=== PATIENT | female | born 1960 | race Caucasian/White ===

== ENCOUNTER 2017-04-21 23:01 | Emergency (ER) | payer MEDICAID, OTHER ==
[~2017-04-21] VITALS: Ht 170.2 cm; Wt 95.0 kg
[~2017-04-21 23:01] MED LIST: AMIT25 PO; ASPI81TA82 PO; CYCL-36 PO; DIFL500T PO; GABA300C3 PO; HYDR-3533 PO; LOPR50TA12 PO; NITR0.4S SL; PERC5TAB12 PO; PROC1TAB8 PO; SIMV40 PO; SYNT125T PO; TAMS0.4C67 PO
[2017-04-21 23:02] VITALS: BP 174/110; PULSE 84; RESP 16; TEMP 98.5; O2SAT 97
[2017-04-22] MEDS ORDERED: METF500T PO (00:06)
[2017-04-22] MEDS ORDERED: CYMB60CA PO (00:06)
[2017-04-22 00:36] LABS: AUTOMATED NEUTROPHIL # 4.1 TH/MM3 (1.8-7.7); BASOPHIL % 0.6 % (0.0-2.0); EOSINOPHIL # 0.1 TH/MM3 (0-0.4); EOSINOPHIL % 1.2 % (0.0-4.0); HEMATOCRIT 45.4 % (35.0-46.0); HEMO FLAGS DIFF FINAL; LYMPH % 36.7 % (9.0-44.0); LYMPHOCYTE # 2.8 TH/MM3 (1.0-4.8); MEAN CELL VOLUME 88.4 FL (80.0-100.0); MEAN CORPUSCULAR HEMOGLOBIN 30.9 PG (27.0-34.0); MONO % 8.3 % (0.0-8.0); NEUT % 53.2 % (16.0-70.0); PLATELET COUNT 169 TH/MM3 (150-450); RED BLOOD COUNT 5.13 MIL/MM3 (4.00-5.30); RED CELL DISTRIBUTION WIDTH 14.2 % (11.6-17.2); WHITE BLOOD COUNT 7.7 TH/MM3 (4.0-11.0)
[2017-04-22] MEDS ORDERED: SODIUM CHLOR 0.9% 1000 ML INJ 1,000 ML IV SCH (00:36)
--- NOTE | 2017-04-22 00:39 | RADRPT ---
EXAM DATE/TIME: 04/22/2017 00:13 [facility] COMPARISON: No previous studies available for comparison. INDICATIONS : Cold and flu symptoms x 3 days MEDICAL HISTORY : Hypothyroidism. SURGICAL HISTORY : ENCOUNTER: Initial ACUITY: 3 days PAIN SCORE: 7/10 LOCATION: Bilateral chest FINDINGS: PA and lateral views of the chest demonstrate the lungs to be symmetrically aerated without evidence of mass, infiltrate or effusion. The cardiomediastinal contours are unremarkable. Osseous structure s are intact. CONCLUSION: No acute cardiopulmonary disease. Rio Padilla MD on April 22, 2017 at 0:37 Board Certified Radiologist. This report was verified electronically.
[2017-04-22] MEDS ORDERED: methylPREDNISolone SOD SUCC 125 MG/2 ML VIAL IV PUSH ONE (00:45)
[2017-04-22] MEDS ORDERED: KETOROLAC TROMETHAMINE 30 MG/ML (IVP) VIAL IV PUSH ONE (00:45)
[2017-04-22] MEDS ORDERED: RESP: ALBUTEROL 2.5 MG/IPRATROPIUM 0.5 MG NEB (SCH) INH ONE (00:45)
--- NOTE | 2017-04-22 00:46 | PD ---
HPI Chief Complaint: Cold / Flu Symptoms Time Seen by Provider: 00:23 Travel History International Travel<30 days: No Contact w/Intl Traveler<30days: No Traveled to known affect area: No History of Present Illness HPI Patient is a 57-year-old female who presents to emergency room with complaints of increased sinus pressure with productive cough, sore throat and myalgias. Patient reports that symptoms began 3 days ago, she reports that symptoms and the persistent. Patient reports that she has been around people with diagnosis influenza, she did have her influenza vaccine this year. Patient reports no chest pain/sob. Reports that she is a smoker. Patient also reports that she has also had laryngitis for the past 3 days. PFSH Past Medical History Arthritis: Yes (RA) Anxiety: Yes Depression: Yes Chest Pain: Yes Congestive Heart Failure: Yes Diabetes: Yes (BORDERLINE) Patient Takes Glucophage: Yes Diminished Hearing: No Gastrointestinal Disorders: Yes (COLITIS) Headaches: Yes Hypertension: Yes Kidney Stones: Yes Myocardial Infarction: Yes Pneumonia: Yes Seizures: Yes Thyroid Disease: Yes ?: Not Menopausal: Yes : 2 Para: 2 Past Surgical History Section: Yes (X 1) Cholecystectomy: Yes Genitourinary Surgery: Yes (BLADDER LIFTED) Hysterectomy: Yes Neurologic Surgery: Yes (MULTIPLE TUMORS IN FRONT LOBE REMOVED- 5 YEARS AGO) Other Surgery: Yes (TARSAL TUNNEL SYNDROME) Social History Alcohol Use: No Tobacco Use: Yes (1 PPD) Substance Use: Yes (MARIJUANA) Allergies-Medications (Allergen,Severity, Reaction): Coded Allergies: penicillin G (Unverified Allergy, Intermediate, Rash, 01/17/17) Reported Meds & Prescriptions Reported Meds & Active Scripts Active Tessalon Perles (Benzonatate) 100 Mg Cap 100 Mg PO TID PRN Azithromycin 500 Mg Tab 500 Mg PO DAILY Proair Hfa 8.5 GM Inh (Albuterol Sulfate) 90 Mcg/Act Aer 2 Puff INH Q4-6H PRN 108 mcg/actuation Prednisone 20 Mg Tab 20 Mg PO BID [address] (Duloxetine HCl) 60 Mg Capdr 60 Mg PO BID Metformin (Metformin HCl) 500 Mg Tab 500 Mg PO BIDPC Review of Systems General / Constitutional: Positive: Chills, No: Fever Eyes: No: Visual changes HENT: Positive: Sore Throat, Rhinitis, Rhinorrhea, Earache, No: Headaches, Neck Pain Cardiovascular: No: Chest Pain or Discomfort Respiratory: Positive: Cough, Wheezing, No: Shortness of Breath Gastrointestinal: No: Abdominal Pain Genitourinary: No: Dysuria Musculoskeletal: Positive: Myalgias, No: Pain Skin: No Rash Neurologic: No: Weakness Psychiatric: No: Depression Endocrine: No: Polydipsia Hematologic/Lymphatic: No: Easy Bruising Physical Exam Narrative GENERAL: Mild distress SKIN: Focused skin assessment warm/dry. HEAD: Atraumatic. Normocephalic. Increased frontal sinus pressure EYES: Pupils equal and round. No scleral icterus. No injection or drainage. ENT: No nasal bleeding or discharge. Mucous membranes pink and moist. NECK: Trachea midline. No JVD. CARDIOVASCULAR: Regular rate and rhythm. No murmur appreciated. RESPIRATORY: No accessory muscle use. Clear to auscultation. Breath sounds equal bilaterally. GASTROINTESTINAL: Abdomen soft, non-tender, nondistended. Hepatic and splenic margins not palpable. MUSCULOSKELETAL: No obvious deformities. No clubbing. No cyanosis. No edema. NEUROLOGICAL: Awake and alert. No obvious cranial nerve deficits. Motor grossly within normal limits. Normal speech. PSYCHIATRIC: Appropriate mood and affect; insight and judgment normal. Data Data Last Documented VS Vital Signs Date Time Temp Pulse Resp B/P (MAP) Pulse Ox O2 Delivery O2 Flow Rate FiO2 04/21/17 23:02 98.5 84 16 174/110 (131) 97 Room Air Orders Orders Complete Blood Count With Diff (04/21/17 23:59) Basic Metabolic Panel (Bmp) (04/21/17 23:59) Influenzae A/B Antigen (04/21/17 23:59) Chest, Pa & Lat (04/21/17 23:59) Iv Access Insert/Monitor (04/21/17 23:59) Sodium Chlor 0.9% 1000 Ml Inj (Ns 1000 M (04/22/17 00:36) Ketorolac Inj (Toradol Inj) (04/22/17 00:45) Methylprednisolone So Succ Inj (Solumedr (04/22/17 00:45) Albuterol-Ipratropium Neb (Duoneb Neb) (04/22/17 00:45) Azithromycin (Zithromax) (04/22/17 01:30) Labs Laboratory Tests Test 04/22/17 00:25 White Blood Count 7.7 TH/MM3 Red Blood Count 5.13 MIL/MM3 Hemoglobin 15.9 GM/DL Hematocrit 45.4 % Mean Corpuscular Volume 88.4 FL Mean Corpuscular Hemoglobin 30.9 PG Mean Corpuscular Hemoglobin Concent 35.0 % Red Cell Distribution Width 14.2 % Platelet Count 169 TH/MM3 Mean Platelet Volume 10.4 FL Neutrophils (%) (Auto) 53.2 % Lymphocytes (%) (Auto) 36.7 % Monocytes (%) (Auto) 8.3 % Eosinophils (%) (Auto) 1.2 % Basophils (%) (Auto) 0.6 % Neutrophils # (Auto) 4.1 TH/MM3 Lymphocytes # (Auto) 2.8 TH/MM3 Monocytes # (Auto) 0.6 TH/MM3 Eosinophils # (Auto) 0.1 TH/MM3 Basophils # (Auto) 0.0 TH/MM3 CBC Comment DIFF FINAL Differential Comment Blood Urea Nitrogen 21 MG/DL Creatinine 0.98 MG/DL Random Glucose 120 MG/DL Calcium Level 9.2 MG/DL Sodium Level 140 MEQ/L Potassium Level 3.9 MEQ/L Chloride Level 106 MEQ/L Carbon Dioxide Level 27.3 MEQ/L Anion Gap 7 MEQ/L Estimat Glomerular Filtration Rate 58 ML/MIN MDM Medical Decision Making Medical Screen Exam Complete: Yes Emergency Medical Condition: Yes Medical Record Reviewed: Yes Interpretation(s) Vital Signs Date Time Temp Pulse Resp B/P (MAP) Pulse Ox O2 Delivery O2 Flow Rate FiO2 04/21/17 23:02 98.5 84 16 174/110 (131) 97 Room Air CBC & BMP Diagram 04/22/17 00:25 Calcium Level 9.2 Last Impressions Chest X-Ray 04/21/17 [id number] Signed Impressions: Service Date/Time: Saturday, April 22, 2017 00:13 - CONCLUSION: No acute cardiopulmonary disease. Rio Padilla MD Microbiology Date/Time Source Procedure Growth Status 04/22/17 00:25 Nasal Aspirate Influenza Types A,B Antigen (LISA) - Final NEGATIVE FOR FLU A AND B ANTIGEN.... Complete Differential Diagnosis Sinusitis, pneumonia, acute bronchitis, viral syndrome, pharyngitis Narrative Course During the course of the patients emergency department visit, the patients history, examination, and differential diagnosis were reviewed with the patient. The patient was placed on a ross carrier driver with oximetry and frequent blood pressure monitoring. The patient had an IV access obtained and blood work sent for analysis. The patient was initially provided IV steroids, IV Toradol, IV fluids and nebulizer treatment. The patients laboratory studies were reviewed and remarkable for CBC & BMP Diagram 04/22/17 00:25 Calcium Level 9.2 Microbiology Date/Time Source Procedure Growth Status 04/22/17 00:25 Nasal Aspirate Influenza Types A,B Antigen (LISA) - Final NEGATIVE FOR FLU A AND B ANTIGEN.... Complete Radiology studies were reviewed and remarkable for Last Impressions Chest X-Ray 04/21/17 [id number] Signed Impressions: Service Date/Time: Monday, April 22, 2017 00:13 - CONCLUSION: No acute cardiopulmonary disease. Rio Padilla MD Patient with most likely acute bronchitis. Discussed need for her to stop smoking cigarettes, plan to treat with steroids, antibiotics, will have her follow-up with her primary care doctor and return to emergency room as needed. Diagnosis Primary Impression: Bronchitis Patient Instructions: General Instructions Additional Instructions: Please provide patient with a copy of their lab work and studies at discharge* * Please follow up with your primary care doctor in 2-3 days Return to the ER if symptoms worsen or progress Return to the ER as needed Med/Other Pt SpecificInfo: Prescription(s) given Scripts Promethazine-Codeine Liq (Promethazine-Codeine Liq) 6.25-10 Mg/5 Ml Syrp 5 ML PO Q6H Y for COUGH AND/OR COLD SYMPTOMS for 7 Days, #140 ML 0 Refills Prov: Mila Grullon DO 04/22/17 Benzonatate (Tessalon Perles) 100 Mg Cap 100 MG PO TID Y for COUGH, #30 CAP 0 Refills Prov: Mila Grullon DO 04/22/17 Azithromycin (Azithromycin) 500 Mg Tab 500 MG PO DAILY for Infection, #5 TAB 0 Refills Prov: Mila Grullon DO 04/22/17 Albuterol 8.5 GM Inh (Proair Hfa 8.5 GM Inh) 90 Mcg/Act Aer 2 PUFF INH Q4-6H Y for SHORTNESS OF BREATH, #1 INHALER 0 Refills 108 mcg/actuation Prov: Mila Grullon DO 04/22/17 Prednisone (Prednisone) 20 Mg Tab 20 MG PO BID for 5 Days, #10 TAB 0 Refills Prov: Mila Grullon DO 04/22/17 Disposition: 01 DISCHARGE HOME Condition: Stable Mila Grullon DO Apr 22, 2017 00:46
[2017-04-22 01:06] LABS: BICARBONATE 27.3 MEQ/L (21.0-32.0)
[2017-04-22 01:08] LABS: POTASSIUM 3.9 MEQ/L (3.5-5.1)
[2017-04-22] MEDS ORDERED: ALBUAER3 INH (01:24)
[2017-04-22] MEDS ORDERED: BENZ100 PO (01:24)
[2017-04-22] MEDS ORDERED: AZIT500T2 PO (01:24)
[2017-04-22] MEDS ORDERED: PRED20 PO (01:24)
[2017-04-22] MEDS ORDERED: PROM6.256 PO (01:28)
[2017-04-22] MEDS ORDERED: AZITHROMYCIN 250 MG TAB PO ONE (01:30)
== END 2017-04-22 01:49 | disposition home or self-care (01) ==
LOC: NEPD 23:01
DX: J40 Bronchitis, not specified as acute or chronic (principal); J11.1 Influenza due to unidentified influenza virus with other respiratory manifestations; I11.0 Hypertensive heart disease with heart failure; E11.9 Type 2 diabetes mellitus without complications; I25.2 Old myocardial infarction
CPT/HCPCS: 71020; 80048; 85025; 87804; 94664; 96361; 96374; 96375; 99284; J1885; J2930; J7030

== ENCOUNTER 2017-05-27 22:16 | Emergency (ER) | payer MEDICAID ==
[~2017-05-27] VITALS: Ht 170.2 cm; Wt 95.5 kg
[~2017-05-27 22:16] MED LIST changes: +ALBUAER3 INH; -AMIT25 PO; -ASPI81TA82 PO; +AZIT500T2 PO; +BENZ100 PO; -CYCL-36 PO; +CYMB60CA PO; -DIFL500T PO; -GABA300C3 PO; -HYDR-3533 PO; -LOPR50TA12 PO; +METF500T PO; -NITR0.4S SL; -PERC5TAB12 PO; +PRED20 PO; -PROC1TAB8 PO; +PROM6.256 PO; -SIMV40 PO; -SYNT125T PO; -TAMS0.4C67 PO
[2017-05-27 22:19] VITALS: BP 224/102; PULSE 97; RESP 16; TEMP 98.2; O2SAT 96
[2017-05-27] MEDS ORDERED: DEXAMETHASONE SOD PHOS 4 MG/ML VIAL IM ONE (23:15)
[2017-05-27] MEDS ORDERED: LEVO.125 PO (23:34)
--- NOTE | 2017-05-27 23:34 | PD ---
HPI Chief Complaint: ENT Complaint Time Seen by Provider: 23:09 Travel History International Travel<30 days: No Contact w/Intl Traveler<30days: No Traveled to known affect area: No History of Present Illness HPI 57 year-old woman presents emergent heart complaining of painful swallowing, soreness in her throat, neck fullness, fevers yesterday, and hoarse voice. She states she feels like she has a goiter. She's been out of her thyroid medicines for a month. She states she had trouble swallowing water and aggressive libertarian tonight so she came in. No other complaints. Symptoms been constant since onset tonight, nonradiating, no aggravating or alleviating factors. History Past Medical History Narrative Medical Fibromyalgia Arthritis Hypothyroidism Tetanus Vaccination: < 5 Years Menopausal: Yes : 2 Para: 2 Social History Alcohol Use: No Tobacco Use: No Allergies-Medications (Allergen,Severity, Reaction): Coded Allergies: penicillin G (Unverified Allergy, Intermediate, Rash, 05/27/17) Reported Meds & Prescriptions Reported Meds & Active Scripts Active Reported Cymbalta DR (Duloxetine HCl) 60 Mg Capdr 60 Mg PO BID Metformin (Metformin HCl) 500 Mg Tab 500 Mg PO BIDPC Review of Systems Except as stated in HPI: all other systems reviewed are Neg Physical Exam Narrative GENERAL: Well-appearing 57 year-old woman, no acute distress. SKIN: Focused skin assessment warm/dry. HEAD: Atraumatic. Normocephalic. EYES: Pupils equal and round. No scleral icterus. No injection or drainage. ENT: No nasal bleeding or discharge. Mucous membranes pink and moist. Minimal goiter. Minimal tender adenopathy. Throat is pretty normal. Don't see any severe tonsillar enlargement or exudates or evidence of abscess. She swallowing normally now. No drooling. A little bit a hoarse voice. NECK: Trachea midline. No JVD. CARDIOVASCULAR: Regular rate and rhythm. No murmur appreciated. RESPIRATORY: No accessory muscle use. Clear to auscultation. Breath sounds equal bilaterally. GASTROINTESTINAL: Abdomen soft, non-tender, nondistended. Hepatic and splenic margins not palpable. MUSCULOSKELETAL: No obvious deformities. Data Data Last Documented VS Vital Signs Date Time Temp Pulse Resp B/P (MAP) Pulse Ox O2 Delivery O2 Flow Rate FiO2 05/27/17 22:19 98.2 97 16 224/102 (142 96 Room Air Orders Orders Dexamethasone Inj (Decadron Inj) (05/27/17 23:15) MDM Medical Decision Making Medical Screen Exam Complete: Yes Emergency Medical Condition: Yes Differential Diagnosis Laryngitis, pharyngitis, goiter, abscess, infection, other Narrative Course Medical decision making INITIAL: 57 year-old woman with some laryngitis symptoms. States she feels throat closing and not able to swallow unable to breathe, she looks well on exam. She'll history of fibromyalgia and I think she may have a little bit of some somatizationn. Nonetheless she looks overall well, she is not drooling, she is no respiratory distress. We'll give her a dose of steroids for laryngitis symptoms, will restart her thyroid medicine. Return for any worsening symptoms. Diagnosis Primary Impression: Laryngitis Additional Instructions: Continue thyroid medicine. Use [id number] acetaminophen or ibuprofen as needed for sore throat. Return to the emergent arm for any worsening trouble swallowing, any trouble breathing, or any other new or worsening symptoms. Med/Other Pt SpecificInfo: Prescription(s) given Scripts Levothyroxine (Synthroid) 125 Mcg Tab 125 MCG PO DAILY for Thyroid, #30 TAB 0 Refills Prov: José Antonio Youssef MD 05/27/17 Disposition: 01 DISCHARGE HOME Condition: Stable José Antonio Youssef MD May 27, 2017 23:34
== END 2017-05-27 23:59 | disposition home or self-care (01) ==
LOC: NEPE 22:16
DX: J04.0 Acute laryngitis (principal); M79.7 Fibromyalgia; M19.90 Unspecified osteoarthritis, unspecified site; E03.9 Hypothyroidism, unspecified; Z88.0 Allergy status to penicillin
CPT/HCPCS: 96372; 99284; J1100

== ENCOUNTER 2017-06-11 20:43 | Emergency (ER) | payer SELFPAY ==
[~2017-06-11] VITALS: Ht 177.8 cm; Wt 95.0 kg
[~2017-06-11 20:43] MED LIST changes: -ALBUAER3 INH; -AZIT500T2 PO; -BENZ100 PO; +LEVO.125 PO; -PRED20 PO; -PROM6.256 PO
[2017-06-11 20:45] VITALS: BP 193/97; PULSE 91; RESP 16; TEMP 98.7
--- NOTE | 2017-06-11 21:02 | PD ---
HPI Chief Complaint: ENT Complaint Time Seen by Provider: 20:54 Travel History International Travel<30 days: No Contact w/Intl Traveler<30days: No Traveled to known affect area: No History of Present Illness HPI 57-year-old female presents emergency department for evaluation of sore throat 2 days. Patient states this radiates into her right ear. She has had no fever or chills. States pain is exacerbated with swallowing. She has had no cough or chest congestion. Patient states she recently flew to [place]. She is also telling me about her fibromyalgia and requesting information on any physicians that may prescribe medical marijuana for chronic pain. PFSH Past Medical History Arthritis: Yes (RA) Anxiety: Yes Depression: Yes Chest Pain: Yes Congestive Heart Failure: Yes Cerebrovascular Accident: Yes Diabetes: Yes (BORDERLINE) Patient Takes Glucophage: Yes Diminished Hearing: No Fibromyalgia: Yes Gastrointestinal Disorders: Yes (COLITIS) Headaches: Yes Hypertension: Yes Kidney Stones: Yes Immunizations Current: Yes Myocardial Infarction: Yes Pneumonia: Yes Seizures: Yes Thyroid Disease: Yes (goiter) Tetanus Vaccination: < 5 Years Influenza Vaccination: Yes Menopausal: Yes : 2 Para: 2 Past Surgical History Section: Yes (X 1) Cholecystectomy: Yes Genitourinary Surgery: Yes (BLADDER LIFTED) Hysterectomy: Yes Neurologic Surgery: Yes (MULTIPLE TUMORS IN FRONT LOBE REMOVED- 5 YEARS AGO) Other Surgery: Yes (TARSAL TUNNEL SYNDROME) Social History Alcohol Use: No Tobacco Use: No Substance Use: Yes (MARIJUANA) Allergies-Medications (Allergen,Severity, Reaction): Coded Allergies: penicillin G (Unverified Allergy, Intermediate, Rash, 06/11/17) Reported Meds & Prescriptions Reported Meds & Active Scripts Active Synthroid (Levothyroxine Sodium) 125 Mcg Tab 125 Mcg PO DAILY Reported Cymbalta DR (Duloxetine HCl) 60 Mg Capdr 60 Mg PO BID Metformin (Metformin HCl) 500 Mg Tab 500 Mg PO BIDPC Review of Systems Except as stated in HPI: all other systems reviewed are Neg Physical Exam Narrative GENERAL: Well-nourished, well-developed female patient in no acute distress SKIN: Focused skin assessment warm/dry. HEAD: Normocephalic. Mastoid tenderness EARS: Bilateral pinnae and external canals appear within normal limits. Bilateral tympanic membranes without erythema, dullness or perforation. EYES: No scleral icterus. No injection or drainage. ENT: Mucosa pink and moist. Pharynx with erythema without exudate No uvular edema. No uvular, palatal, or tonsillar deviation. Airway patent. Nasal turbinates appear normal without nasal blood, purulent drainage or septal hematoma. NECK: Supple, trachea midline. No JVD or lymphadenopathy. CARDIOVASCULAR: Regular rate and rhythm without murmurs, gallops, or rubs. RESPIRATORY: Breath sounds equal bilaterally. No accessory muscle use. GASTROINTESTINAL: Abdomen soft, non-tender, nondistended. MUSCULOSKELETAL: No cyanosis, or edema. BACK: Nontender without obvious deformity. No CVA tenderness. Data Data Last Documented VS Vital Signs Date Time Temp Pulse Resp B/P (MAP) Pulse Ox O2 Delivery O2 Flow Rate FiO2 06/11/17 21:43 06/11/17 20:45 98.7 91 16 Room Air Orders Orders Dexamethasone Inj (Decadron Inj) (06/11/17 21:15) Ed Discharge Order (06/11/17 21:18) [facility] Medical Decision Making Medical Screen Exam Complete: Yes Emergency Medical Condition: Yes Medical Record Reviewed: Yes Differential Diagnosis Pharyngitis strep versus viral versus, cold versus allergies versus otitis media Narrative Course 57-year-old female presents emergency department for evaluation. Patient appears without distress. She does have erythematous pharynx without exudate. Vital signs are stable. Exam is otherwise benign. He is counseled on symptom management. She'll be discharged home at this time. Diagnosis Primary Impression: Pharyngitis Qualified Codes: J02.9 - Acute pharyngitis, unspecified Additional Impression: Otalgia of right ear Referrals: Marcos Montero MD Patient Instructions: General Instructions, Pharyngitis (ED) Additional Instructions: Warm salt water gargles may help to alleviate symptoms Tylenol or ibuprofen as directed on the package as needed for pain Avoid abrasive and acidic foods Return immediately with any acute worsening of symptoms Med/Other Pt SpecificInfo: No Change to Meds Disposition: 01 DISCHARGE HOME Condition: Stable Ana Maria Erickson Jun 11, 2017 21:02
[2017-06-11] MEDS ORDERED: DEXAMETHASONE SOD PHOS 4 MG/ML VIAL IM ONE (21:15)
== END 2017-06-11 21:55 | disposition home or self-care (01) ==
LOC: NEPD 20:43
DX: J02.9 Acute pharyngitis, unspecified (principal); H92.01 Otalgia, right ear; M79.7 Fibromyalgia; M06.9 Rheumatoid arthritis, unspecified; I11.0 Hypertensive heart disease with heart failure; I50.9 Heart failure, unspecified; E04.9 Nontoxic goiter, unspecified; R73.03 Prediabetes; Z86.73 Personal history of transient ischemic attack (TIA), and cerebral infarction without residual deficits
CPT/HCPCS: 96372; 99284; J1100

== ENCOUNTER 2017-07-08 10:04 | Emergency (ER) | payer SELFPAY ==
[2017-07-08 10:06] VITALS: BP 219/108; PULSE 83; RESP 26; TEMP 97.7; O2SAT 97
[2017-07-08 10:09] VITALS: RESP 20
--- NOTE | 2017-07-08 10:20 | PD ---
HPI Chief Complaint: Pain: Acute or Chronic Time Seen by Provider: 10:11 Travel History International Travel<30 days: No Contact w/Intl Traveler<30days: No Traveled to known affect area: No History of Present Illness HPI This is a 57-year-old female who has a history of fibromyalgia who presents to the emergency department with onset of right leg pain that started at 2 AM this morning, sharp, severe, radiating from her buttock down to her calf, worse with movement and walking, improved with rest. She has some tingling in her leg. She has never had pain like this before. She denies any urinary or bowel incontinence and denies any numbness in her vaginal or rectal area. She has no symptoms in the left leg. She does say she has been trying to get into a primary care doctor here but is having some difficulty. She is not currently on any medicine for her fibromyalgia. She denies any recent injuries. PFSH Past Medical History Arthritis: Yes (RA) Anxiety: Yes Depression: Yes Chest Pain: Yes Congestive Heart Failure: Yes Cerebrovascular Accident: Yes Diabetes: Yes (BORDERLINE) Patient Takes Glucophage: No Diminished Hearing: No Fibromyalgia: Yes Gastrointestinal Disorders: Yes (COLITIS) Headaches: Yes Hypertension: Yes Kidney Stones: Yes Immunizations Current: Yes Myocardial Infarction: Yes Pneumonia: Yes Seizures: Yes Thyroid Disease: Yes (goiter) Menopausal: Yes : 2 Para: 2 Past Surgical History Section: Yes (X 1) Cholecystectomy: Yes Genitourinary Surgery: Yes (BLADDER LIFTED) Hysterectomy: Yes Neurologic Surgery: Yes (MULTIPLE TUMORS IN FRONT LOBE REMOVED- 5 YEARS AGO) Other Surgery: Yes (TARSAL TUNNEL SYNDROME) Social History Alcohol Use: No Tobacco Use: No Substance Use: Yes (MARIJUANA) Allergies-Medications (Allergen,Severity, Reaction): Coded Allergies: penicillin G (Unverified Allergy, Intermediate, Rash, 06/11/17) Reported Meds & Prescriptions Reported Meds & Active Scripts Active No Active Prescriptions or Reported Medications Review of Systems Except as stated in HPI: all other systems reviewed are Neg Physical Exam Narrative GENERAL:Well appearing, no acute distress SKIN: Focused skin assessment warm and dry. HEAD: Atraumatic. Normocephalic. EYES: Pupils equal and round. No injection or drainage. ENT: Moist mucous membranes NECK: Trachea midline. CARDIOVASCULAR: Regular rate and rhythm. No murmur appreciated. 2+ right DP pulse with normal capillary refill. RESPIRATORY: Clear to auscultation. Breath sounds equal bilaterally. GASTROINTESTINAL: Abdomen soft, non-tender, nondistended. MUSCULOSKELETAL: Tender to palpation along the right gluteus muscle. No focal vertebral tenderness in the lumbar spine. NEUROLOGICAL: Awake and alert. No obvious cranial nerve deficits. 5 out of 5 strength in the bilateral lower extremities. PSYCHIATRIC: Tearful, anxious Data Data Last Documented VS Vital Signs Date Time Temp Pulse Resp B/P (MAP) Pulse Ox O2 Delivery O2 Flow Rate FiO2 07/08/17 10:09 20 07/08/17 10:06 97.7 83 97 Orders Orders Spine, Lumbar - Ltd (Ap & Lat) (07/08/17 ) Ketorolac Inj (Toradol Inj) (07/08/17 10:30) Orphenadrine Inj (Norflex Inj) (07/08/17 10:30) MDM Medical Decision Making Medical Screen Exam Complete: Yes Emergency Medical Condition: Yes Interpretation(s) afebrile, tachypnea, hypertension L-spine x-ray: No acute fracture Differential Diagnosis Compression fracture, herniated disc, sciatica, cauda equina syndrome Narrative Course This is a 57-year-old female who presents to the emergency department with right leg pain that started at 2 AM last night. Her symptoms are consistent with a radiculopathy. She has no red flags for cauda equina syndrome. She has a normal neurovascular exam. X-rays reassuring with no evidence of acute fracture. Patient was given Toradol and Norflex here in the emergency department. She will be discharged on meloxicam and with a muscle relaxer. Diagnosis Primary Impression: Lumbosacral radiculopathy Patient Instructions: General Instructions Additional Instructions: If you develop weakness of your legs, difficulty walking, numbness of your legs or your genital or rectal area, loss of your bowel or bladder, or difficulty urinating return to the emergency department immediately. Followup with your primary care physician in one week if your symptoms have not improved. Med/Other Pt SpecificInfo: Prescription(s) given Scripts Cyclobenzaprine (Flexeril) 10 Mg Tab 10 MG PO TID for Muscle Spasm, #12 TAB 0 Refills Prov: Sravanthi Parrish MD 07/08/17 Meloxicam (Meloxicam) 7.5 Mg Tab 7.5 MG PO DAILY for Arthritis Pain for 14 Days, #14 TAB 0 Refills Prov: Sravanthi Parrish MD 07/08/17 Disposition: 01 DISCHARGE HOME Condition: Stable Sravanthi Parrish MD Jul 08, 2017 10:20
[2017-07-08] MEDS ORDERED: ORPHENADRINE INJ 60 MG/2 ML AMP IM ONE (10:30)
[2017-07-08] MEDS ORDERED: KETOROLAC TROMETHAMINE 60 MG/2 ML (IM) VIAL IM ONE (10:30)
--- NOTE | 2017-07-08 10:54 | RADRPT ---
EXAM DATE/TIME: 07/08/2017 10:37 [facility] COMPARISON: No previous studies available for comparison. INDICATIONS : Low back pain with no history of trauma. MEDICAL HISTORY : fibromyalgia SURGICAL HISTORY : None. ENCOUNTER: Initial ACUITY: 1 day PAIN SCORE: 8/10 LOCATION: Bilateral low back pain FINDINGS: Two view examination was performed. There are five non-rib bearing vertebral bodies. The vertebral bodies are in normal alignment without evidence of subluxation or scoliosis. Scattered mild degenerat guadalupe changes greatest at L2-3 and L5-S1 levels. The pedicles are intact. Bony mineralization is norm al. No fracture is identified. CONCLUSION: 1. Fracture or subluxation. Jaxon Atkins MD on July 08, 2017 at 10:51 Board Certified Radiologist. This report was verified electronically.
[2017-07-08] MEDS ORDERED: MELO7.5T27 PO (11:09)
[2017-07-08] MEDS ORDERED: CYCL10TA PO (11:09)
== END 2017-07-08 11:23 | disposition home or self-care (01) ==
LOC: NEPD 10:04
DX: M54.17 Radiculopathy, lumbosacral region (principal); E11.9 Type 2 diabetes mellitus without complications; F32.9 Major depressive disorder, single episode, unspecified; F41.9 Anxiety disorder, unspecified; I11.0 Hypertensive heart disease with heart failure; I50.9 Heart failure, unspecified; M79.7 Fibromyalgia; F12.90 Cannabis use, unspecified, uncomplicated; Z86.73 Personal history of transient ischemic attack (TIA), and cerebral infarction without residual deficits
CPT/HCPCS: 72100; 96372; 99283; J1885; J2360

== ENCOUNTER 2017-08-01 17:25 | Emergency (ER) | payer SELFPAY ==
[~2017-08-01 17:25] MED LIST changes: +CYCL10TA PO; -CYMB60CA PO; -LEVO.125 PO; +MELO7.5T27 PO; -METF500T PO
[2017-08-01] MEDS ORDERED: IOHEXOL 350 MG/ML 10 ML VIAL (for RAD DIAG) IVCONTRAST ONE (17:26)
[2017-08-01 17:39] VITALS: BP 220/135; PULSE 80; RESP 18; TEMP 98.1; O2SAT 100
[2017-08-01] MEDS ORDERED: MORPHINE SULFATE 4 MG/ML INJ IV PUSH ONE (18:15)
[2017-08-01] MEDS ORDERED: hydrALAZINE HCL 20 MG/ML VIAL IV PUSH ONE (18:15)
[2017-08-01] MEDS ORDERED: ONDANSETRON HCL 4 MG/2 ML VIAL IVP ONE (18:15)
--- NOTE | 2017-08-01 18:16 | PD ---
HPI Chief Complaint: Abdominal Pain Time Seen by Provider: 18:01 Travel History International Travel<30 days: No Contact w/Intl Traveler<30days: No Traveled to known affect area: No History of Present Illness HPI 57yo F with PMH of fibromyalgia, DM, HTN presents to the ED with c/o abdominal pain for 3 days. Pain is associated with nausea and vomiting today. Denies any fever, chest pain, sob, urinary complaints, focal weakness. Pain is left upper abdomen and sharp and radiates to left lower back. Did not take anything for pain at home. PSH include cholecystectomy and . Pt ran out of her blood pressure medication this morning. PFSH Past Medical History Arthritis: Yes (RA) Anxiety: Yes Depression: Yes Cardiovascular Problems: Yes Chest Pain: Yes Congestive Heart Failure: Yes Cerebrovascular Accident: Yes Diabetes: Yes Diminished Hearing: No Fibromyalgia: Yes Gastrointestinal Disorders: Yes (COLITIS) Headaches: Yes Hypertension: Yes Kidney Stones: Yes Immunizations Current: Yes Myocardial Infarction: Yes Pneumonia: Yes Seizures: Yes Thyroid Disease: Yes (goiter) Menopausal: Yes : 2 Para: 2 Past Surgical History Section: Yes (X 1) Cholecystectomy: Yes Genitourinary Surgery: Yes (BLADDER LIFTED) Hysterectomy: Yes Neurologic Surgery: Yes (MULTIPLE TUMORS IN FRONT LOBE REMOVED- 5 YEARS AGO) Other Surgery: Yes (TARSAL TUNNEL SYNDROME) Social History Alcohol Use: No Tobacco Use: No Substance Use: Yes (MARIJUANA) Allergies-Medications (Allergen,Severity, Reaction): Coded Allergies: penicillin G (Unverified Allergy, Intermediate, Rash, 06/11/17) Reported Meds & Prescriptions Reported Meds & Active Scripts Active Flexeril (Cyclobenzaprine HCl) 10 Mg Tab 10 Mg PO TID Meloxicam 7.5 Mg Tab 7.5 Mg PO DAILY 14 Days Review of Systems Except as stated in HPI: all other systems reviewed are Neg Physical Exam Narrative GENERAL: 57yo F in mild distress. SKIN: Focused skin assessment warm/dry. HEAD: Atraumatic. Normocephalic. CARDIOVASCULAR: Regular rate and rhythm. No murmur appreciated. RESPIRATORY: No accessory muscle use. Clear to auscultation. Breath sounds equal bilaterally. GASTROINTESTINAL: Abdomen soft, +Epigastric and LUQ ttp. No rebound tenderness or guarding. MUSCULOSKELETAL: No obvious deformities. No clubbing. No cyanosis. No edema. NEUROLOGICAL: Awake and alert. No obvious cranial nerve deficits. Motor grossly within normal limits. Normal speech. PSYCHIATRIC: Anxious. Data Data Last Documented VS Vital Signs Date Time Temp Pulse Resp B/P (MAP) Pulse Ox O2 Delivery O2 Flow Rate FiO2 08/01/17 20:30 78 16 123/60 (81) 98 Room Air 08/01/17 17:39 98.1 Orders Orders Hydralazine Inj (Apresoline Inj) (08/01/17 18:15) Complete Blood Count With Diff (08/01/17 18:10) Comprehensive Metabolic Panel (08/01/17 18:10) Lipase (08/01/17 18:10) Prothrombin Time / Inr (Pt) (08/01/17 18:10) Act Partial Throm Time (Ptt) (08/01/17 18:10) Urinalysis - C+S If Indicated (08/01/17 18:10) Ct Abd/Pel W Iv Contrast(Rout) (08/01/17 18:10) Morphine Inj (Morphine Inj) (08/01/17 18:15) Ondansetron Inj (Zofran Inj) (08/01/17 18:15) Electrocardiogram (08/01/17 ) Troponin I (08/01/17 18:10) Iohexol 350 Inj (Omnipaque 350 Inj) (08/01/17 17:26) Morphine Inj (Morphine Inj) (08/01/17 20:45) Labs Laboratory Tests Test 08/01/17 18:10 White Blood Count 5.7 TH/MM3 Red Blood Count 4.91 MIL/MM3 Hemoglobin 14.4 GM/DL Hematocrit 41.2 % Mean Corpuscular Volume 84.0 FL Mean Corpuscular Hemoglobin 29.3 PG Mean Corpuscular Hemoglobin Concent 34.9 % Red Cell Distribution Width 13.4 % Platelet Count 295 TH/MM3 Mean Platelet Volume 8.3 FL Neutrophils (%) (Auto) 61.6 % Lymphocytes (%) (Auto) 30.1 % Monocytes (%) (Auto) 6.0 % Eosinophils (%) (Auto) 1.4 % Basophils (%) (Auto) 0.9 % Neutrophils # (Auto) 3.5 TH/MM3 Lymphocytes # (Auto) 1.7 TH/MM3 Monocytes # (Auto) 0.3 TH/MM3 Eosinophils # (Auto) 0.1 TH/MM3 Basophils # (Auto) 0.1 TH/MM3 CBC Comment DIFF FINAL Differential Comment Prothrombin Time 10.6 SEC Prothromb Time International Ratio 1.0 RATIO Activated Partial Thromboplast Time 25.2 SEC Urine Color YELLOW Urine Turbidity CLEAR Urine pH 7.0 Urine Specific [place] 1.029 Urine Protein TRACE mg/dL Urine Glucose (UA) NEG mg/dL Urine Ketones TRACE mg/dL Urine Occult Blood NEG Urine Nitrite NEG Urine Bilirubin NEG Urine Urobilinogen 4.0 MG/DL Urine Leukocyte Esterase LARGE Urine RBC 2 /hpf Urine WBC 4 /hpf Urine Squamous Epithelial Cells 5 /hpf Urine Mucus FEW /lpf Microscopic Urinalysis Comment CULT NOT INDICATED Blood Urea Nitrogen 13 MG/DL Creatinine 0.89 MG/DL Random Glucose 80 MG/DL Total Protein 8.4 GM/DL Albumin 4.7 GM/DL Calcium Level 9.7 MG/DL Alkaline Phosphatase 72 U/L Aspartate Amino Transf (AST/SGOT) 23 U/L Alanine Aminotransferase (ALT/SGPT) 37 U/L Total Bilirubin 0.6 MG/DL Sodium Level 139 MEQ/L Potassium Level 3.4 MEQ/L Chloride Level 105 MEQ/L Carbon Dioxide Level 25.7 MEQ/L Anion Gap 8 MEQ/L Estimat Glomerular Filtration Rate 65 ML/MIN Troponin I LESS THAN 0.02 NG/ML Lipase 160 U/L [facility] Medical Decision Making Medical Screen Exam Complete: Yes Emergency Medical Condition: Yes Interpretation(s) EKG: NSR 81bpm. Normal axis. No ST segment elevation or depression. Differential Diagnosis Colitis vs. gastritis vs. pancreatitis vs. atypical ACS Narrative Course 57yo F with abdominal pain for 3 days. BP is very elevated but pt is in a lot of pain and crying. Repeat BP after morphine is 128/60. Labs reviewed, no leukocytosis. H/H normal. CMP unremarkable. Troponin negative. Lipase normal. UA showed large leukocyte. WBC only 4. Culture not indicated. CT a/ p showed no evidence of acute abdominal pain or pelvic process. No masses are identified. Pt reevaluated at bedside after morphine and zofran. Pain has improved. Pt instructed to follow up with GI if symptoms persist. Return precautions given. Diagnosis Primary Impression: Abdominal pain Qualified Codes: R10.12 - Left upper quadrant pain Patient Instructions: General Instructions Departure Forms: Tests/Procedures Additional Instructions: Please follow up with [facility] for further evaluation of your abdominal pain. Please follow up with your primary care physician for your elevated blood pressure. Med/Other Pt SpecificInfo: Prescription(s) given Scripts Acetaminophen (Tylenol) 325 Mg Tab 650 MG PO Q6H Y for PAIN SCALE 1 TO 4, #20 TAB 0 Refills Prov: Zahira Freeman DO 08/01/17 Omeprazole (Omeprazole) 40 Mg Cap 40 MG PO DAILY for 10 Days, #10 CAP 0 Refills Prov: Zahira Freeman DO 08/01/17 Disposition: 01 DISCHARGE HOME Condition: Stable Zahira Freeman DO Aug 01, 2017 18:16
[2017-08-01 18:30] LABS: AUTOMATED NEUTROPHIL # 3.5 TH/MM3 (1.8-7.7); BASOPHIL # 0.1 TH/MM3 (0-0.2); BASOPHIL % 0.9 % (0.0-2.0); EOSINOPHIL # 0.1 TH/MM3 (0-0.4); EOSINOPHIL % 1.4 % (0.0-4.0); HEMATOCRIT 41.2 % (35.0-46.0); HEMOGLOBIN 14.4 GM/DL (11.6-15.3); LYMPH % 30.1 % (9.0-44.0); LYMPHOCYTE # 1.7 TH/MM3 (1.0-4.8); MEAN CORPUSCULAR HEMOGLOBIN 29.3 PG (27.0-34.0); MEAN CORPUSCULAR HGB CONC 34.9 % (32.0-36.0); MEAN PLATELET VOLUME 8.3 FL (7.0-11.0); MONOCYTE # 0.3 TH/MM3 (0-0.9); NEUT % 61.6 % (16.0-70.0); PLATELET COUNT 295 TH/MM3 (150-450); RED BLOOD COUNT 4.91 MIL/MM3 (4.00-5.30); RED CELL DISTRIBUTION WIDTH 13.4 % (11.6-17.2); WHITE BLOOD COUNT 5.7 TH/MM3 (4.0-11.0)
[2017-08-01 18:40] LABS: BILIRUBIN, URINE NEG (NEG); BLOOD, URINE NEG (NEG); GLUCOSE,URINE NEG (NEG); KETONE, URINE TRACE mg/dL (NEG); MUCUS URINE FEW /lpf (OCC); NITRITE,URINE NEG (NEG); SQUAMOUS EPITHELIAL CELL URINE 5 /hpf (0-5); URINE COLOR YELLOW (YELLW/STRAW); URINE LEUKOCYTE ESTERASE LARGE (NEG)
[2017-08-01 18:43] LABS: PROTHROMBIN TIME - PATIENT 10.6 SEC (9.8-11.6)
[2017-08-01 18:46] LABS: ALBUMIN 4.7 GM/DL (3.4-5.0); AST (GOT) 23 U/L (15-37); BICARBONATE 25.7 MEQ/L (21.0-32.0); BLOOD UREA NITROGEN 13 MG/DL (7-18); CALCIUM 9.7 MG/DL (8.5-10.1); CHLORIDE 105 MEQ/L (98-107); CREATININE 0.89 MG/DL (0.50-1.00); GLOMERULAR FILTRATION RATE 65 ML/MIN (>89); GLUCOSE,RANDOM 80 MG/DL (74-106); SODIUM (NA) 139 MEQ/L (136-145)
[2017-08-01 18:47] LABS: ALT (GPT) 37 U/L (10-53)
[2017-08-01 18:51] LABS: ALKALINE PHOSPHATASE 72 U/L (45-117); TOTAL BILIRUBIN ADULT 0.6 MG/DL (0.2-1.0); TOTAL PROTEIN 8.4 GM/DL (6.4-8.2); TROPONIN I LESS THAN 0.02 NG/ML (0.02-0.05)
[2017-08-01 19:30] VITALS: BP 128/59; PULSE 78; RESP 16; O2SAT 98
[2017-08-01 20:30] VITALS: BP 123/60; PULSE 78; RESP 16; O2SAT 98
[2017-08-01] MEDS ORDERED: MORPHINE SULFATE 2 MG/ML INJ IV PUSH ONE (20:45)
--- NOTE | 2017-08-01 20:48 | RADRPT ---
EXAM DATE/TIME: 08/01/2017 19:54 [facility] COMPARISON: No previous studies available for comparison. INDICATIONS : Diffuse abdomen pain in left upper region. IV CONTRAST: 76 cc Omnipaque 350 (iohexol) IV ORAL CONTRAST: No oral contrast ingested. RADIATION DOSE: 21.87 CTDIvol (mGy) MEDICAL HISTORY : Seizures. Hypertension. Diabetes mellitus type 2.CVA SURGICAL HISTORY : Cholecystectomy. Hysterectomy. ENCOUNTER: Initial ACUITY: 3 days PAIN SCALE: 10/10 LOCATION: Left upper quadrant TECHNIQUE: Volumetric scanning of the abdomen and pelvis was performed. Using automated exposure control and ad justment of the mA and/or kV according to patient size, radiation dose was kept as low as reasonably achievable to obtain optimal diagnostic quality images. DICOM format image data is available electro nically for review and comparison. FINDINGS: LOWER LUNGS: The visualized lower lungs are clear. LIVER: Homogeneous density without lesion. There is no dilation of the biliary tree. No calcified gallston es. SPLEEN: Normal size without lesion. Accessory spleen is present. PANCREAS: Within normal limits. KIDNEYS: There is a single simple cyst in the left kidney measuring 8 mm. ADRENAL GLANDS: Within normal limits. VASCULAR: There is no aortic aneurysm. BOWEL/MESENTERY: The stomach, small bowel, and colon demonstrate no acute abnormality. There is no free intraperitone al air or fluid. ABDOMINAL WALL: Within normal limits. RETROPERITONEUM: There is no lymphadenopathy. BLADDER: No wall thickening or mass. REPRODUCTIVE: Within normal limits. INGUINAL: There is no lymphadenopathy or hernia. MUSCULOSKELETAL: Within normal limits for patient age. CONCLUSION: 1. No evidence of acute abdominal or pelvic process. No masses are identified. Amadou Wallace MD on August 01, 2017 at 20:42 Board Certified Radiologist. This report was verified electronically.
[2017-08-01] MEDS ORDERED: TYLE325T PO (21:03)
[2017-08-01] MEDS ORDERED: OMEP40CA2 PO (21:03)
--- NOTE | 2017-08-02 11:30 | EKG ---
Date Performed: 08/01/2017 Time Performed: 19:05:14 PTAGE: 57 years EKG: Sinus rhythm NORMAL ECG NO PREVIOUS TRACING DOCTOR: Amadou Rush Interpretating Date/Time 08/02/2017 11:27:59
== END 2017-08-01 21:45 | disposition home or self-care (01) ==
LOC: NEPD 17:25
DX: R10.12 Left upper quadrant pain (principal); R11.2 Nausea with vomiting, unspecified; M79.7 Fibromyalgia; E11.9 Type 2 diabetes mellitus without complications; M06.9 Rheumatoid arthritis, unspecified; F41.9 Anxiety disorder, unspecified; F32.9 Major depressive disorder, single episode, unspecified; I11.0 Hypertensive heart disease with heart failure; I50.9 Heart failure, unspecified
CPT/HCPCS: 74177; 80053; 81001; 83690; 84484; 85025; 85610; 85730; 93005; 96374; 96375; 96376; 99285; J0360; J2270; J2405; Q9967

== ENCOUNTER 2017-08-21 14:48 | Emergency (ER) | payer OTHER ==
[~2017-08-21 14:48] MED LIST changes: +OMEP40CA2 PO; +TYLE325T PO
[2017-08-21 15:15] VITALS: BP 94/58; PULSE 92; RESP 18; TEMP 99.1; O2SAT 98
[2017-08-21 16:03] LABS: BACTERIA, URINE OCC /hpf; BILIRUBIN, URINE NEG (NEG); BLOOD, URINE NEG (NEG); GLUCOSE,URINE NEG (NEG); KETONE, URINE NEG (NEG); MUCUS URINE FEW /lpf (OCC); NITRITE,URINE NEG (NEG); SQUAMOUS EPITHELIAL CELL URINE 3 /hpf (0-5); URINE COLOR YELLOW (YELLW/STRAW); URINE LEUKOCYTE ESTERASE TRACE (NEG)
[2017-08-21 16:07] LABS: AUTOMATED NEUTROPHIL # 4.6 TH/MM3 (1.8-7.7); BASOPHIL % 0.6 % (0.0-2.0); EOSINOPHIL # 0.1 TH/MM3 (0-0.4); EOSINOPHIL % 0.8 % (0.0-4.0); HEMATOCRIT 41.8 % (35.0-46.0); HEMOGLOBIN 14.2 GM/DL (11.6-15.3); LYMPH % 24.3 % (9.0-44.0); LYMPHOCYTE # 1.7 TH/MM3 (1.0-4.8); MEAN CELL VOLUME 90.1 FL (80.0-100.0); MEAN CORPUSCULAR HEMOGLOBIN 30.5 PG (27.0-34.0); MEAN CORPUSCULAR HGB CONC 33.9 % (32.0-36.0); MEAN PLATELET VOLUME 11.1 FL (7.0-11.0); MONO % 8.8 % (0.0-8.0); MONOCYTE # 0.6 TH/MM3 (0-0.9); NEUT % 65.5 % (16.0-70.0); PLATELET COUNT 151 TH/MM3 (150-450); RED BLOOD COUNT 4.64 MIL/MM3 (4.00-5.30)
[2017-08-21 16:18] LABS: PROTHROMBIN TIME - PATIENT 9.9 SEC (9.8-11.6)
[2017-08-21 16:25] LABS: ALBUMIN 3.7 GM/DL (3.4-5.0); ALT (GPT) 30 U/L (10-53); AST (GOT) 20 U/L (15-37); BICARBONATE 24.7 MEQ/L (21.0-32.0); BLOOD UREA NITROGEN 16 MG/DL (7-18); CALCIUM 8.9 MG/DL (8.5-10.1); CHLORIDE 108 MEQ/L (98-107); CREATININE 1.04 MG/DL (0.50-1.00); GLOMERULAR FILTRATION RATE 54 ML/MIN (>89); GLUCOSE,RANDOM 118 MG/DL (74-106); SODIUM (NA) 141 MEQ/L (136-145)
[2017-08-21 16:27] LABS: ALKALINE PHOSPHATASE 79 U/L (45-117); TOTAL BILIRUBIN ADULT 0.3 MG/DL (0.2-1.0); TOTAL PROTEIN 7.2 GM/DL (6.4-8.2)
[2017-08-21] MEDS ORDERED: SODIUM CHLOR 0.9% 1000 ML INJ 1,000 ML IV SCH (17:11)
[2017-08-21] MEDS ORDERED: FAMOTIDINE 20 MG/2 ML VIAL IV PUSH ONE (17:15)
[2017-08-21] MEDS ORDERED: MORPHINE SULFATE 4 MG/ML INJ IV PUSH ONE (17:15)
[2017-08-21] MEDS ORDERED: KETOROLAC TROMETHAMINE 30 MG/ML (IVP) VIAL IVP ONE (17:15)
[2017-08-21] MEDS ORDERED: ONDANSETRON HCL 4 MG/2 ML VIAL IVP ONE (17:15)
[2017-08-21] MEDS ORDERED: SODIUM CHLORIDE 0.9% FLUSH 10 ML FLUSH IV FLUSH PRN (17:15)
--- NOTE | 2017-08-21 17:21 | PD ---
HPI Chief Complaint: Abdominal Pain Time Seen by Provider: 17:07 Travel History International Travel<30 days: No Contact w/Intl Traveler<30days: No Traveled to known affect area: No History of Present Illness HPI 57-year-old female presents emergency department with complaints of left upper quadrant abdominal pain for the past day and a half. Patient states no fever, but has had chills. Patient states she has had nausea, vomiting, and diarrhea. Patient states she has had her gallbladder out in the past. Patient denies urinary symptoms. She denies history of pancreatitis in the past. Pain is currently 8 out of 10. Patient denies cough or shortness of breath. Patient denies chest pain. Patient is allergic to penicillin G. PFSH Past Medical History Arthritis: Yes (RA) Anxiety: Yes Depression: Yes Cardiovascular Problems: Yes Chest Pain: Yes Congestive Heart Failure: Yes Cerebrovascular Accident: Yes Diabetes: Yes Patient Takes Glucophage: No Diminished Hearing: No Fibromyalgia: Yes Gastrointestinal Disorders: Yes (COLITIS) Headaches: Yes Hypertension: Yes Kidney Stones: Yes Immunizations Current: Yes Myocardial Infarction: Yes Pneumonia: Yes Seizures: Yes Thyroid Disease: Yes (goiter) Menopausal: Yes : 2 Para: 2 Past Surgical History Section: Yes (X 1) Cholecystectomy: Yes Genitourinary Surgery: Yes (BLADDER LIFTED X 2) Hysterectomy: Yes Neurologic Surgery: Yes (MULTIPLE TUMORS IN FRONT LOBE REMOVED- 5 YEARS AGO) Other Surgery: Yes (TARSAL TUNNEL SYNDROME) Social History Alcohol Use: No Tobacco Use: No Substance Use: Yes (MARIJUANA) Allergies-Medications (Allergen,Severity, Reaction): Coded Allergies: penicillin G (Unverified Allergy, Intermediate, Rash, 06/11/17) Reported Meds & Prescriptions Reported Meds & Active Scripts Active Tylenol (Acetaminophen) 325 Mg Tab 650 Mg PO Q6H PRN Omeprazole 40 Mg Cap 40 Mg PO DAILY 10 Days Flexeril (Cyclobenzaprine HCl) 10 Mg Tab 10 Mg PO TID Meloxicam 7.5 Mg Tab 7.5 Mg PO DAILY 14 Days Review of Systems Except as stated in HPI: all other systems reviewed are Neg General / Constitutional: No: Fever Eyes: No: Visual changes HENT: No: Headaches Cardiovascular: No: Chest Pain or Discomfort Respiratory: No: Shortness of Breath Gastrointestinal: Positive: Nausea, Vomiting, Diarrhea, Abdominal Pain Genitourinary: Positive: Flank Pain, No: Dysuria Musculoskeletal: No: Pain Skin: No Rash Neurologic: No: Weakness Psychiatric: No: Depression Endocrine: No: Polydipsia Hematologic/Lymphatic: No: Easy Bruising Physical Exam Narrative GENERAL: Patient appears mild to moderate distress SKIN: Warm and dry. Normal color. Normal turgor. No diaphoresis. HEAD: Atraumatic. Normocephalic. EYES: Pupils equal and round. No scleral icterus. No injection or drainage. ENT: No nasal bleeding or discharge. Mucous membranes pink and moist. Pharynx is clear. Airways patent. NECK: Trachea midline. Supple and nontender CARDIOVASCULAR: Regular rate and rhythm. No murmurs gallops or rubs RESPIRATORY: No accessory muscle use. Clear to auscultation. Breath sounds equal bilaterally. GASTROINTESTINAL: Abdomen soft, moderate tenderness of the left upper quadrant, nondistended. No rebound. Question of left-sided CVA tenderness with percussion. Hepatic and splenic margins not palpable. MUSCULOSKELETAL: Extremities without clubbing, cyanosis, or edema. No obvious deformities. NEUROLOGICAL: Awake and alert. No obvious cranial nerve deficits. Motor grossly within normal limits. Five out of 5 muscle strength in the arms and legs. Normal speech. PSYCHIATRIC: Appropriate mood and affect; insight and judgment normal. Data Data Last Documented VS Vital Signs Date Time Temp Pulse Resp B/P (MAP) Pulse Ox O2 Delivery O2 Flow Rate FiO2 08/21/17 15:15 99.1 92 18 94/58 (70) 98 Orders Orders Complete Blood Count With Diff (08/21/17 15:17) Comprehensive Metabolic Panel (08/21/17 15:17) Lipase (08/21/17 15:17) Prothrombin Time / Inr (Pt) (08/21/17 15:17) Act Partial Throm Time (Ptt) (08/21/17 15:17) Urinalysis - C+S If Indicated (08/21/17 15:17) Ct Abd/Pel W Iv Contrast(Rout) (08/21/17 17:11) Iv Access Insert/Monitor (08/21/17 17:11) Ecg Monitoring (08/21/17 17:11) Oximetry (08/21/17 17:11) Morphine Inj (Morphine Inj) (08/21/17 17:15) Ondansetron Inj (Zofran Inj) (08/21/17 17:15) Sodium Chlor 0.9% 1000 Ml Inj (Ns 1000 M (08/21/17 17:11) Sodium Chloride 0.9% Flush (Ns Flush) (08/21/17 17:15) Famotidine Inj (Pepcid Inj) (08/21/17 17:15) Ketorolac Inj (Toradol Inj) (08/21/17 17:15) Iohexol 350 Inj (Omnipaque 350 Inj) (08/21/17 18:43) Labs Laboratory Tests Test 08/21/17 15:20 White Blood Count 7.0 TH/MM3 Red Blood Count 4.64 MIL/MM3 Hemoglobin 14.2 GM/DL Hematocrit 41.8 % Mean Corpuscular Volume 90.1 FL Mean Corpuscular Hemoglobin 30.5 PG Mean Corpuscular Hemoglobin Concent 33.9 % Red Cell Distribution Width 14.0 % Platelet Count 151 TH/MM3 Mean Platelet Volume 11.1 FL Neutrophils (%) (Auto) 65.5 % Lymphocytes (%) (Auto) 24.3 % Monocytes (%) (Auto) 8.8 % Eosinophils (%) (Auto) 0.8 % Basophils (%) (Auto) 0.6 % Neutrophils # (Auto) 4.6 TH/MM3 Lymphocytes # (Auto) 1.7 TH/MM3 Monocytes # (Auto) 0.6 TH/MM3 Eosinophils # (Auto) 0.1 TH/MM3 Basophils # (Auto) 0.0 TH/MM3 CBC Comment DIFF FINAL Differential Comment Prothrombin Time 9.9 SEC Prothromb Time International Ratio 1.0 RATIO Activated Partial Thromboplast Time 19.8 SEC Urine Color YELLOW Urine Turbidity CLEAR Urine pH 5.0 Urine Specific [place] 1.025 Urine Protein NEG mg/dL Urine Glucose (UA) NEG mg/dL Urine Ketones NEG mg/dL Urine Occult Blood NEG Urine Nitrite NEG Urine Bilirubin NEG Urine Urobilinogen LESS THAN 2.0 MG/DL Urine Leukocyte Esterase TRACE Urine RBC 1 /hpf Urine WBC 3 /hpf Urine Squamous Epithelial Cells 3 /hpf Urine Bacteria OCC /hpf Urine Mucus FEW /lpf Microscopic Urinalysis Comment CULT NOT INDICATED Blood Urea Nitrogen 16 MG/DL Creatinine 1.04 MG/DL Random Glucose 118 MG/DL Total Protein 7.2 GM/DL Albumin 3.7 GM/DL Calcium Level 8.9 MG/DL Alkaline Phosphatase 79 U/L Aspartate Amino Transf (AST/SGOT) 20 U/L Alanine Aminotransferase (ALT/SGPT) 30 U/L Total Bilirubin 0.3 MG/DL Sodium Level 141 MEQ/L Potassium Level 4.0 MEQ/L Chloride Level 108 MEQ/L Carbon Dioxide Level 24.7 MEQ/L Anion Gap 8 MEQ/L Estimat Glomerular Filtration Rate 54 ML/MIN Lipase 178 U/L [facility] Medical Decision Making Medical Screen Exam Complete: Yes Emergency Medical Condition: Yes Medical Record Reviewed: Yes Differential Diagnosis Abdominal pain. Colitis. Diverticulitis. Nausea and vomiting. Pancreatitis. Renal colic. Narrative Course Labs ordered in triage including CBC, coagulation studies, chemistry, and urinalysis. CBC is unremarkable. Coagulation studies are unremarkable. Chemistries show chloride of 108, creatinine 1.04, GFR is 54, random glucose is 118. Lipase is normal at 178 Urinalysis shows trace of leukocyte esterase, occasional bacteria and few mucous but cultures not indicated. Patient is given 20 mg famotidine IV as well as 30 mg ketorolac IV, and 2 mg morphine IV in addition to 4 mg Zofran IV. 1000 mL normal saline bolus is ordered. CT of the abdomen with IV contrast is ordered. CT shows no acute findings per radiologist. Patient was sent home on omeprazole 40 mg daily #30 Patient also given Bentyl 10 mg every 6 hours as needed #20. Patient also given Zofran 4 mg every 6 hours as needed #20. Patient is given tramadol 50 mg 1 every 6 hours as needed pain #20. Patient is to rest, push fluids, and follow-up with her primary care physician as needed. Diagnosis Primary Impression: Gastritis Qualified Codes: K29.00 - Acute gastritis without bleeding Additional Impression: Nausea vomiting and diarrhea Patient Instructions: Abdominal Pain (ED), Acute Diarrhea (ED), Acute Nausea and Vomiting (ED), General Instructions Additional Instructions: CBC is unremarkable. Coagulation studies are unremarkable. Chemistries show chloride of 108, creatinine 1.04, GFR is 54, random glucose is 118. Lipase is normal at 178 Urinalysis shows trace of leukocyte esterase, occasional bacteria and few mucous but cultures not indicated. Patient is given 20 mg famotidine IV as well as 30 mg ketorolac IV, and 2 mg morphine IV in addition to 4 mg Zofran IV. 1000 mL normal saline bolus is ordered. CT of the abdomen with IV contrast is ordered. CT shows no acute findings per radiologist. Patient was sent home on omeprazole 40 mg daily #30 Patient also given Bentyl 10 mg every 6 hours as needed #20. Patient also given Zofran 4 mg every 6 hours as needed #20. Patient is given tramadol 50 mg 1 every 6 hours as needed pain #20. Patient is to rest, push fluids, and follow-up with her primary care physician as needed. Med/Other Pt SpecificInfo: Prescription(s) given Scripts Tramadol (Tramadol) 50 Mg Tab 50 MG PO Q6H Y for PAIN, #20 TAB 0 Refills Prov: José Antonio Youssef MD 08/21/17 Dicyclomine (Bentyl) 10 Mg Cap 10 MG PO QID for Bowel Management, #20 CAP 0 Refills Prov: José Antonio Youssef MD 08/21/17 Omeprazole (Omeprazole) 40 Mg Cap 40 MG PO DAILY, #30 CAP 0 Refills Prov: José Antonio Youssef MD 08/21/17 Disposition: 01 DISCHARGE HOME Condition: Stable Arnulfo Slade Aug 21, 2017 17:21
[2017-08-21] MEDS ORDERED: IOHEXOL 350 MG/ML 10 ML VIAL (for RAD DIAG) IVCONTRAST ONE (18:43)
--- NOTE | 2017-08-21 18:54 | RADRPT ---
EXAM DATE/TIME: 08/21/2017 18:23 [facility] COMPARISON: No previous studies available for comparison. INDICATIONS : Left upper abdomen pain. IV CONTRAST: 98 cc Omnipaque 350 (iohexol) IV ORAL CONTRAST: No oral contrast ingested. RADIATION DOSE: 25.29 CTDIvol (mGy) MEDICAL HISTORY : Hypertension. Renal calculi. Diabetes mellitus type 1. SURGICAL HISTORY : Hysterectomy. bladder lifted ENCOUNTER: Initial ACUITY: 1 day PAIN SCALE: 8/10 LOCATION: Left upper quadrant abdomen TECHNIQUE: Volumetric scanning of the abdomen and pelvis was performed. Using automated exposure control and ad justment of the mA and/or kV according to patient size, radiation dose was kept as low as reasonably achievable to obtain optimal diagnostic quality images. DICOM format image data is available electro nically for review and comparison. FINDINGS: Lung bases are clear. No acute findings in the liver, spleen, adrenals, kidneys or pancreas. Tiny bilateral renal cysts. There is no free fluid. No bowel obstruction. No adenopathy. Mild constipation. CONCLUSION: 1. No acute findings on abdomen and pelvic CT. Jacky Matta MD on August 21, 2017 at 18:48 Board Certified Radiologist. This report was verified electronically.
[2017-08-21] MEDS ORDERED: DICY10 PO (18:58)
[2017-08-21] MEDS ORDERED: TRAM50TA PO (18:58)
[2017-08-21] MEDS ORDERED: OMEP40CA2 PO (18:58)
[2017-08-21] MEDS ORDERED: ZOFR4TAB PO (19:02)
== END 2017-08-21 20:20 | disposition home or self-care (01) ==
LOC: NED 14:48 → NEPD 20:20
DX: K29.00 Acute gastritis without bleeding (principal); R19.7 Diarrhea, unspecified; M06.9 Rheumatoid arthritis, unspecified; F41.9 Anxiety disorder, unspecified; F32.9 Major depressive disorder, single episode, unspecified; I11.0 Hypertensive heart disease with heart failure; I50.9 Heart failure, unspecified; E11.9 Type 2 diabetes mellitus without complications; F12.90 Cannabis use, unspecified, uncomplicated
CPT/HCPCS: 74177; 80053; 81001; 83690; 85025; 85610; 85730; 96374; 96375; 99284; J1885; J2270; J2405; J7030; Q9967

== ENCOUNTER 2017-09-01 17:31 | Emergency (ER) | payer OTHER ==
[~2017-09-01] VITALS: Ht 170.2 cm; Wt 113.5 kg
[~2017-09-01 17:31] MED LIST changes: +DICY10 PO; +TRAM50TA PO; +ZOFR4TAB PO
[2017-09-01 17:39] VITALS: BP 180/93; PULSE 99; RESP 18; TEMP 98.3; O2SAT 96
== END 2017-09-01 18:00 | disposition left against medical advice (07) ==
LOC: NED 17:31
DX: R10.9 Unspecified abdominal pain (principal)
CPT/HCPCS: 99281

== ENCOUNTER 2017-09-04 15:00 | Emergency (ER) | payer OTHER ==
[~2017-09-04] VITALS: Ht 167.6 cm; Wt 101.4 kg
[2017-09-04 15:33] VITALS: BP 187/114; PULSE 94; RESP 20; TEMP 98.2; O2SAT 98
--- NOTE | 2017-09-04 17:09 | PD ---
HPI Chief Complaint: Abdominal Pain Time Seen by Provider: 17:07 Travel History International Travel<30 days: No Contact w/Intl Traveler<30days: No Traveled to known affect area: No History of Present Illness HPI 57-year-old female came to the emergency room with history of left flank pain. She says that she had gone to see her primary care which is the adult family home program manager who sent her here for this pain. Patient has been in the emergency room multiple times in the past for abdominal pain. She actually had a CAT scan 3 weeks ago for abdominal pain as well. Patient seems very anxious and tearful and wants this pain to be resolved. Vital signs are stable. There was a workup initiated in triage prior to patient coming in. She describes the pain radiating from the left flank to the left lower quadrant area. Pain is there constantly. Does not seem to have any aggravating or relieving factors. No associated nausea or vomiting. PFSH Past Medical History Narrative Medical List of her past medical, surgical, social and family history is reviewed from the nursing note. Arthritis: Yes (RA) Anxiety: Yes Depression: Yes Cardiovascular Problems: Yes (X2 PR) Chest Pain: Yes Congestive Heart Failure: Yes Cerebrovascular Accident: Yes Diabetes: Yes Diminished Hearing: No Fibromyalgia: Yes Gastrointestinal Disorders: Yes (COLITIS) Headaches: Yes Hypertension: Yes Kidney Stones: Yes Immunizations Current: Yes Myocardial Infarction: Yes Pneumonia: Yes Seizures: Yes Thyroid Disease: Yes (goiter) Menopausal: Yes : 2 Para: 2 Past Surgical History Section: Yes (X 1) Cholecystectomy: Yes Genitourinary Surgery: Yes (BLADDER LIFTED X 2) Hysterectomy: Yes Neurologic Surgery: Yes (MULTIPLE TUMORS IN FRONT LOBE REMOVED- 5 YEARS AGO) Other Surgery: Yes (TARSAL TUNNEL SYNDROME) Social History Alcohol Use: No Tobacco Use: No Substance Use: Yes (MARIJUANA) Allergies-Medications (Allergen,Severity, Reaction): Coded Allergies: penicillin G (Unverified Allergy, Intermediate, Rash, 06/11/17) Comments List of her allergies reviewed from the nursing note. Reported Meds & Prescriptions Reported Meds & Active Scripts Active Macrobid (Nitrofurantoin Monoh/Nitrofur Macro) 100 Mg Cap 100 Mg PO BID 7 Days Zofran (Ondansetron HCl) 4 Mg Tab 4 Mg PO Q6HR PRN Tramadol (Tramadol HCl) 50 Mg Tab 50 Mg PO Q6H PRN Bentyl (Dicyclomine HCl) 10 Mg Cap 10 Mg PO QID Omeprazole 40 Mg Cap 40 Mg PO DAILY Tylenol (Acetaminophen) 325 Mg Tab 650 Mg PO Q6H PRN Omeprazole 40 Mg Cap 40 Mg PO DAILY 10 Days Flexeril (Cyclobenzaprine HCl) 10 Mg Tab 10 Mg PO TID Meloxicam 7.5 Mg Tab 7.5 Mg PO DAILY 14 Days Narrative Medication List of her home medications reviewed from the nursing note. Review of Systems Except as stated in HPI: all other systems reviewed are Neg Gastrointestinal: Positive: Abdominal Pain Physical Exam Narrative GENERAL: Awake, alert, anxious, tearful, obese SKIN: Focused skin assessment warm/dry. HEAD: Atraumatic. Normocephalic. EYES: Pupils equal and round. No scleral icterus. No injection or drainage. ENT: No nasal bleeding or discharge. Mucous membranes pink and moist. NECK: Trachea midline. No JVD. CARDIOVASCULAR: Regular rate and rhythm. No murmur appreciated. RESPIRATORY: No accessory muscle use. Clear to auscultation. Breath sounds equal bilaterally. GASTROINTESTINAL: Abdomen soft, left side of the abdomen is very tender to touch r, nondistended. Hepatic and splenic margins not palpable. MUSCULOSKELETAL: No obvious deformities. No clubbing. No cyanosis. No edema. NEUROLOGICAL: Awake and alert. No obvious cranial nerve deficits. Motor grossly within normal limits. Normal speech. PSYCHIATRIC: Appropriate mood and affect; insight and judgment normal. Data Data Last Documented VS Vital Signs Date Time Temp Pulse Resp B/P (MAP) Pulse Ox O2 Delivery O2 Flow Rate FiO2 09/04/17 15:33 98.2 94 20 187/114 (138) 98 Orders Orders Complete Blood Count With Diff (09/04/17 15:37) Comprehensive Metabolic Panel (09/04/17 15:37) Lipase (09/04/17 15:37) Prothrombin Time / Inr (Pt) (09/04/17 15:37) Act Partial Throm Time (Ptt) (09/04/17 15:37) Urinalysis - C+S If Indicated (09/04/17 15:37) Ct Abd/Pel W/O Iv Contrast (09/04/17 ) Morphine Inj (Morphine Inj) (09/04/17 17:15) Ondansetron Inj (Zofran Inj) (09/04/17 17:15) Urine Culture (09/04/17 16:30) Nitrofurantoin Monohyd Macrocr (Macrobid (09/04/17 18:15) Ed Discharge Order (09/04/17 18:14) Labs Laboratory Tests Test 09/04/17 16:30 09/04/17 17:05 Urine Color YELLOW Urine Turbidity CLEAR Urine pH 5.0 Urine Specific [place] 1.025 Urine Protein NEG mg/dL Urine Glucose (UA) NEG mg/dL Urine Ketones NEG mg/dL Urine Occult Blood NEG Urine Nitrite POS Urine Bilirubin NEG Urine Urobilinogen LESS THAN 2.0 MG/DL Urine Leukocyte Esterase NEG Urine RBC 1 /hpf Urine WBC 5 /hpf Urine Squamous Epithelial Cells 3 /hpf Urine Bacteria MANY /hpf Urine Mucus FEW /lpf Microscopic Urinalysis Comment CULTURE INDICATED White Blood Count 12.0 TH/MM3 Red Blood Count 4.83 MIL/MM3 Hemoglobin 15.0 GM/DL Hematocrit 43.1 % Mean Corpuscular Volume 89.2 FL Mean Corpuscular Hemoglobin 31.0 PG Mean Corpuscular Hemoglobin Concent 34.7 % Red Cell Distribution Width 13.6 % Platelet Count 194 TH/MM3 Mean Platelet Volume 11.0 FL Neutrophils (%) (Auto) 63.4 % Lymphocytes (%) (Auto) 28.5 % Monocytes (%) (Auto) 7.1 % Eosinophils (%) (Auto) 0.6 % Basophils (%) (Auto) 0.4 % Neutrophils # (Auto) 7.6 TH/MM3 Lymphocytes # (Auto) 3.4 TH/MM3 Monocytes # (Auto) 0.9 TH/MM3 Eosinophils # (Auto) 0.1 TH/MM3 Basophils # (Auto) 0.0 TH/MM3 CBC Comment DIFF FINAL Differential Comment Prothrombin Time 10.0 SEC Prothromb Time International Ratio 1.0 RATIO Activated Partial Thromboplast Time 24.9 SEC Blood Urea Nitrogen 16 MG/DL Creatinine 1.11 MG/DL Random Glucose 103 MG/DL Total Protein 7.9 GM/DL Albumin 4.0 GM/DL Calcium Level 9.0 MG/DL Alkaline Phosphatase 81 U/L Aspartate Amino Transf (AST/SGOT) 21 U/L Alanine Aminotransferase (ALT/SGPT) 31 U/L Total Bilirubin 0.3 MG/DL Sodium Level 140 MEQ/L Potassium Level 4.0 MEQ/L Chloride Level 107 MEQ/L Carbon Dioxide Level 25.8 MEQ/L Anion Gap 7 MEQ/L Estimat Glomerular Filtration Rate 50 ML/MIN Lipase 136 U/L MDM Medical Decision Making Medical Screen Exam Complete: Yes Emergency Medical Condition: Yes Medical Record Reviewed: Yes Differential Diagnosis Ureteral colic, acute diverticulitis, chronic abdominal Narrative Course 6:36 PM blood test results are back and within acceptable limits. CT scan is unremarkable. UA is positive for UTI. She was given a dose of Macrobid and discharged home with a prescription for Macrobid. Procedures EKG Prior to Arrival: No Diagnosis Primary Impression: Abdominal pain Qualified Codes: R10.32 - Left lower quadrant pain Additional Impression: UTI (urinary tract infection) Qualified Codes: N39.0 - Urinary tract infection, site not specified Referrals: Primary Care Physician 3 days Additional Instructions: Please take the medication as per the prescription direction. Return to the emergency room if condition worsens or any other new concerns. Otherwise follow -up with your primary care. Med/Other Pt SpecificInfo: Prescription(s) given Scripts Nitrofurantoin Monohydrate Macrocrystals (Macrobid) 100 Mg Cap 100 MG PO BID for Infection for 7 Days, #14 CAP 0 Refills Prov: Sherri Turcios MD 09/04/17 Disposition: 01 DISCHARGE HOME Condition: Stable Sherri Turcios MD Sep 04, 2017 17:08
[2017-09-04] MEDS ORDERED: MORPHINE SULFATE 4 MG/ML INJ IV PUSH ONE (17:15)
[2017-09-04] MEDS ORDERED: ONDANSETRON HCL 4 MG/2 ML VIAL IV PUSH ONE (17:15)
[2017-09-04 17:33] LABS: AUTOMATED NEUTROPHIL # 7.6 TH/MM3 (1.8-7.7); BASOPHIL % 0.4 % (0.0-2.0); EOSINOPHIL # 0.1 TH/MM3 (0-0.4); EOSINOPHIL % 0.6 % (0.0-4.0); HEMATOCRIT 43.1 % (35.0-46.0); LYMPH % 28.5 % (9.0-44.0); LYMPHOCYTE # 3.4 TH/MM3 (1.0-4.8); MEAN CELL VOLUME 89.2 FL (80.0-100.0); MEAN CORPUSCULAR HGB CONC 34.7 % (32.0-36.0); MONO % 7.1 % (0.0-8.0); MONOCYTE # 0.9 TH/MM3 (0-0.9); NEUT % 63.4 % (16.0-70.0); PLATELET COUNT 194 TH/MM3 (150-450); RED BLOOD COUNT 4.83 MIL/MM3 (4.00-5.30); RED CELL DISTRIBUTION WIDTH 13.6 % (11.6-17.2)
[2017-09-04 17:33] LABS: BACTERIA, URINE MANY /hpf; BILIRUBIN, URINE NEG (NEG); BLOOD, URINE NEG (NEG); GLUCOSE,URINE NEG (NEG); KETONE, URINE NEG (NEG); MUCUS URINE FEW /lpf (OCC); NITRITE,URINE POS (NEG); SQUAMOUS EPITHELIAL CELL URINE 3 /hpf (0-5); URINE COLOR YELLOW (YELLW/STRAW); URINE LEUKOCYTE ESTERASE NEG (NEG)
[2017-09-04 17:52] LABS: AST (GOT) 21 U/L (15-37); BICARBONATE 25.8 MEQ/L (21.0-32.0); BLOOD UREA NITROGEN 16 MG/DL (7-18); CHLORIDE 107 MEQ/L (98-107); CREATININE 1.11 MG/DL (0.50-1.00); GLOMERULAR FILTRATION RATE 50 ML/MIN (>89); GLUCOSE,RANDOM 103 MG/DL (74-106); SODIUM (NA) 140 MEQ/L (136-145)
[2017-09-04 17:56] LABS: ALKALINE PHOSPHATASE 81 U/L (45-117); ALT (GPT) 31 U/L (10-53); TOTAL BILIRUBIN ADULT 0.3 MG/DL (0.2-1.0); TOTAL PROTEIN 7.9 GM/DL (6.4-8.2)
--- NOTE | 2017-09-04 18:08 | RADRPT ---
EXAM DATE/TIME: 09/04/2017 17:37 [facility] COMPARISON: CT ABDOMEN & PELVIS W CONTRAST, August 21, 2017, 18:23. INDICATIONS : Patient complains of abdominal pain and nausea. ORAL CONTRAST: No oral contrast ingested. RADIATION DOSE: 15.94 CTDIvol (mGy) MEDICAL HISTORY : Hypertension. Cardiovascular disease Cerebrovascular disease.diabetic SURGICAL HISTORY : Cholecystectomy. Hysterectomy. ENCOUNTER: Initial ACUITY: 1 day PAIN SCALE: 10/10 LOCATION: Left abdomen TECHNIQUE: Volumetric scanning of the abdomen and pelvis was performed. Using automated exposure control and ad justment of the mA and/or kV according to patient size, radiation dose was kept as low as reasonably achievable to obtain optimal diagnostic quality images. DICOM format image data is available electro nically for review and comparison. FINDINGS: LOWER LUNGS: The visualized lower lungs are clear. LIVER: Homogeneous density without lesion for noncontrast technique. There is no dilation of the biliary tr ee. Cholecystectomy. SPLEEN: Normal size without lesion. PANCREAS: Within normal limits. KIDNEYS: Normal in size and shape. There is no mass, stone, or hydronephrosis. ADRENAL GLANDS: Within normal limits. VASCULAR: There is no aortic aneurysm. BOWEL/MESENTERY: No dilated loops of small or large bowel. No evidence of free fluid. ABDOMINAL WALL: Within normal limits. RETROPERITONEUM: There is no lymphadenopathy. BLADDER: No wall thickening or mass. REPRODUCTIVE: Within normal limits. INGUINAL: There is no lymphadenopathy or hernia. MUSCULOSKELETAL: Within normal limits for patient age. CONCLUSION: 1. No acute findings in the abdomen/pelvis. Rio Padilla MD on September 04, 2017 at 18:04 Board Certified Radiologist. This report was verified electronically.
[2017-09-04] MEDS ORDERED: NITROFURANTOIN MONOHYD MACROCR 100 MG CAP PO ONE (18:15)
[2017-09-04] MEDS ORDERED: MACR100C2 PO (18:25)
== END 2017-09-04 18:45 | disposition home or self-care (01) ==
LOC: NED 15:00 → NEPD 18:45
DX: R10.32 Left lower quadrant pain (principal); N39.0 Urinary tract infection, site not specified; F12.90 Cannabis use, unspecified, uncomplicated
CPT/HCPCS: 74176; 80053; 81001; 83690; 85025; 85610; 85730; 87077; 87086; 87186; 96374; 96375; 99284; J2270; J2405

== ENCOUNTER 2017-09-21 16:46 | Emergency (ER) | payer OTHER ==
[~2017-09-21 16:46] MED LIST changes: +MACR100C2 PO
[2017-09-21 16:54] VITALS: BP 165/84; PULSE 84; RESP 16; TEMP 98.6; O2SAT 100
[2017-09-21] MEDS ORDERED: SODIUM CHLORIDE 0.9% FLUSH 10 ML FLUSH IV FLUSH PRN (18:30)
[2017-09-21] MEDS ORDERED: MORPHINE SULFATE 8 MG/ML INJ IV PUSH ONE ×2 (18:30→20:45)
[2017-09-21] MEDS ORDERED: LIDOCAINE VISCOUS 2% SOLN 15 ML UDC PO ONE (18:30)
[2017-09-21] MEDS ORDERED: KETOROLAC TROMETHAMINE 30 MG/ML (IVP) VIAL IVP ONE (18:30)
[2017-09-21] MEDS ORDERED: ALUMINUM/MAGNESIUM/SIMETH 30 ML CUP PO ONE (18:30)
[2017-09-21] MEDS ORDERED: ONDANSETRON HCL 4 MG/2 ML VIAL IVP ONE (18:30)
[2017-09-21 18:58] LABS: AUTOMATED NEUTROPHIL # 8.5 TH/MM3 (1.8-7.7); BASOPHIL # 0.1 TH/MM3 (0-0.2); BASOPHIL % 0.5 % (0.0-2.0); EOSINOPHIL # 0.1 TH/MM3 (0-0.4); EOSINOPHIL % 0.6 % (0.0-4.0); HEMATOCRIT 45.9 % (35.0-46.0); HEMOGLOBIN 15.7 GM/DL (11.6-15.3); LYMPH % 27.8 % (9.0-44.0); LYMPHOCYTE # 3.6 TH/MM3 (1.0-4.8); MEAN CORPUSCULAR HEMOGLOBIN 30.4 PG (27.0-34.0); MEAN CORPUSCULAR HGB CONC 34.2 % (32.0-36.0); MEAN PLATELET VOLUME 11.4 FL (7.0-11.0); MONO % 4.8 % (0.0-8.0); MONOCYTE # 0.6 TH/MM3 (0-0.9); NEUT % 66.3 % (16.0-70.0); PLATELET COUNT 193 TH/MM3 (150-450); RED BLOOD COUNT 5.16 MIL/MM3 (4.00-5.30); RED CELL DISTRIBUTION WIDTH 13.5 % (11.6-17.2); WHITE BLOOD COUNT 12.8 TH/MM3 (4.0-11.0)
[2017-09-21 19:09] VITALS: RESP 16; O2SAT 98
[2017-09-21 19:10] LABS: BACTERIA, URINE OCC /hpf; BILIRUBIN, URINE NEG (NEG); BLOOD, URINE NEG (NEG); GLUCOSE,URINE NEG (NEG); HYALINE CAST, URINE 2 /lpf (RARE); KETONE, URINE NEG (NEG); MUCUS URINE FEW /lpf (OCC); NITRITE,URINE NEG (NEG); SQUAMOUS EPITHELIAL CELL URINE 1 /hpf (0-5); URINE COLOR YELLOW (YELLW/STRAW); URINE LEUKOCYTE ESTERASE NEG (NEG)
[2017-09-21 19:16] LABS: BICARBONATE 23.1 MEQ/L (21.0-32.0); CALCIUM 9.5 MG/DL (8.5-10.1); CREATININE 1.11 MG/DL (0.50-1.00)
[2017-09-21 19:19] LABS: PROTHROMBIN TIME - PATIENT 10.4 SEC (9.8-11.6)
[2017-09-21] MEDS ORDERED: METR-1 PO (20:07)
[2017-09-21] MEDS ORDERED: CIPR-9 PO (20:07)
--- NOTE | 2017-09-21 20:07 | PD ---
HPI Chief Complaint: GI Complaint Time Seen by Provider: 18:14 Travel History International Travel<30 days: No Contact w/Intl Traveler<30days: No Traveled to known affect area: No History of Present Illness HPI 57-year-old female arrives complaining of pain in the abdomen. Patient states the pain is severe. She saw her primary doctor, Dr. Jaffe, who advised her to come to the ER. She's had the pain for about 24 hours. She describes vomiting. No chest pain or shortness of breath. No fever. She reports it feels similar to prior episodes of colitis. She denies frequency and dysuria. No vaginal bleeding or discharge. No history of abdominal surgery. PFSH Past Medical History Arthritis: Yes (RA) Anxiety: Yes Depression: Yes Cardiovascular Problems: Yes (X2 [place]) Chest Pain: Yes Congestive Heart Failure: Yes Cerebrovascular Accident: Yes Diabetes: Yes Patient Takes Glucophage: No Diminished Hearing: No Fibromyalgia: Yes Gastrointestinal Disorders: Yes (COLITIS) Headaches: Yes Hypertension: Yes Kidney Stones: Yes Immunizations Current: Yes Myocardial Infarction: Yes Pneumonia: Yes Seizures: Yes Thyroid Disease: Yes (goiter) Menopausal: Yes : 2 Para: 2 Past Surgical History Section: Yes (X 1) Cholecystectomy: Yes Genitourinary Surgery: Yes (BLADDER LIFTED X 2) Hysterectomy: Yes Neurologic Surgery: Yes (MULTIPLE TUMORS IN FRONT LOBE REMOVED- 5 YEARS AGO) Other Surgery: Yes (TARSAL TUNNEL SYNDROME) Social History Alcohol Use: No Tobacco Use: No Substance Use: Yes (MARIJUANA) Allergies-Medications (Allergen,Severity, Reaction): Coded Allergies: penicillin G (Unverified Allergy, Intermediate, Rash, 06/11/17) Reported Meds & Prescriptions Reported Meds & Active Scripts Active Macrobid (Nitrofurantoin Monoh/Nitrofur Macro) 100 Mg Cap 100 Mg PO BID 7 Days Zofran (Ondansetron HCl) 4 Mg Tab 4 Mg PO Q6HR PRN Tramadol (Tramadol HCl) 50 Mg Tab 50 Mg PO Q6H PRN Bentyl (Dicyclomine HCl) 10 Mg Cap 10 Mg PO QID Omeprazole 40 Mg Cap 40 Mg PO DAILY Tylenol (Acetaminophen) 325 Mg Tab 650 Mg PO Q6H PRN Omeprazole 40 Mg Cap 40 Mg PO DAILY 10 Days Flexeril (Cyclobenzaprine HCl) 10 Mg Tab 10 Mg PO TID Meloxicam 7.5 Mg Tab 7.5 Mg PO DAILY 14 Days Review of Systems Except as stated in HPI: all other systems reviewed are Neg General / Constitutional: No: Fever Physical Exam Narrative GENERAL: 57-year-old female pleasant well-nourished well-developed, tearful Vital Signs Date Time Temp Pulse Resp B/P (MAP) Pulse Ox O2 Delivery O2 Flow Rate FiO2 09/21/17 19:09 16 98 Room Air 09/21/17 16:54 98.6 84 16 165/84 (111) 100 SKIN: Warm and dry. HEAD: Atraumatic. Normocephalic. EYES: Pupils equal and round. No scleral icterus. No injection or drainage. ENT: No nasal bleeding or discharge. Mucous membranes pink and moist. NECK: Trachea midline. No JVD. CARDIOVASCULAR: Regular rate and rhythm. RESPIRATORY: No accessory muscle use. Clear to auscultation. Breath sounds equal bilaterally. GASTROINTESTINAL: Soft. Nonspecific tenderness and guarding. MUSCULOSKELETAL: Extremities without clubbing, cyanosis, or edema. No obvious deformities. NEUROLOGICAL: Awake and alert. No obvious cranial nerve deficits. Motor grossly within normal limits. Five out of 5 muscle strength in the arms and legs. Normal speech. PSYCHIATRIC: Appropriate mood and affect; insight and judgment normal. Data Data Last Documented VS Vital Signs Date Time Temp Pulse Resp B/P (MAP) Pulse Ox O2 Delivery O2 Flow Rate FiO2 09/21/17 22:18 81 16 173/79 (110) 100 09/21/17 20:43 Room Air 09/21/17 16:54 98.6 Orders Orders Complete Blood Count With Diff (09/21/17 16:56) Basic Metabolic Panel (Bmp) (09/21/17 16:56) Act Partial Throm Time (Ptt) (09/21/17 16:56) Prothrombin Time / Inr (Pt) (09/21/17 16:56) Urinalysis - C+S If Indicated (09/21/17 16:56) Lipase (09/21/17 16:56) Iv Access Insert/Monitor (09/21/17 18:17) Ecg Monitoring (09/21/17 18:17) Oximetry (09/21/17 18:17) Ondansetron Inj (Zofran Inj) (09/21/17 18:30) Sodium Chloride 0.9% Flush (Ns Flush) (09/21/17 18:30) Ketorolac Inj (Toradol Inj) (09/21/17 18:30) Morphine Inj (Morphine Inj) (09/21/17 18:30) Al-Mag Hy-Si 40-40-4 Mg/Ml Liq (Mag-Al P (09/21/17 18:30) Lidocaine 2% Viscous (Xylocaine 2% Visco (09/21/17 18:30) Hepatic Functional Panel (09/21/17 19:21) Lipase (09/21/17 19:21) Dicyclomine Inj (Bentyl Inj) (09/21/17 20:15) Morphine Inj (Morphine Inj) (09/21/17 20:45) Drug Screen, Random Urine (09/21/17 20:38) Diatrizoate Liq ( Gastroview Liq) (09/21/17 20:49) Ct Abd/Pel W Iv Contrast(Rout) (09/21/17 20:49) Haloperidol Inj (Haldol Inj) (09/21/17 21:00) Electrocardiogram (09/21/17 18:46) Iohexol 350 Inj (Omnipaque 350 Inj) (09/21/17 21:23) Ed Discharge Order (09/21/17 22:08) Labs Laboratory Tests Test 09/21/17 18:50 09/21/17 19:30 White Blood Count 12.8 TH/MM3 Red Blood Count 5.16 MIL/MM3 Hemoglobin 15.7 GM/DL Hematocrit 45.9 % Mean Corpuscular Volume 89.0 FL Mean Corpuscular Hemoglobin 30.4 PG Mean Corpuscular Hemoglobin Concent 34.2 % Red Cell Distribution Width 13.5 % Platelet Count 193 TH/MM3 Mean Platelet Volume 11.4 FL Neutrophils (%) (Auto) 66.3 % Lymphocytes (%) (Auto) 27.8 % Monocytes (%) (Auto) 4.8 % Eosinophils (%) (Auto) 0.6 % Basophils (%) (Auto) 0.5 % Neutrophils # (Auto) 8.5 TH/MM3 Lymphocytes # (Auto) 3.6 TH/MM3 Monocytes # (Auto) 0.6 TH/MM3 Eosinophils # (Auto) 0.1 TH/MM3 Basophils # (Auto) 0.1 TH/MM3 CBC Comment DIFF FINAL Differential Comment Prothrombin Time 10.4 SEC Prothromb Time International Ratio 1.0 RATIO Activated Partial Thromboplast Time 25.2 SEC Urine Color YELLOW Urine Turbidity CLEAR Urine pH 5.0 Urine Specific [place] 1.018 Urine Protein NEG mg/dL Urine Glucose (UA) NEG mg/dL Urine Ketones NEG mg/dL Urine Occult Blood NEG Urine Nitrite NEG Urine Bilirubin NEG Urine Urobilinogen LESS THAN 2.0 MG/DL Urine Leukocyte Esterase NEG Urine WBC 3 /hpf Urine Squamous Epithelial Cells 1 /hpf Urine Bacteria OCC /hpf Urine Hyaline Casts 2 /lpf Urine Mucus FEW /lpf Microscopic Urinalysis Comment CULT NOT INDICATED Blood Urea Nitrogen 14 MG/DL Creatinine 1.11 MG/DL Random Glucose 94 MG/DL Calcium Level 9.5 MG/DL Sodium Level 139 MEQ/L Potassium Level 3.5 MEQ/L Chloride Level 107 MEQ/L Carbon Dioxide Level 23.1 MEQ/L Anion Gap 9 MEQ/L Estimat Glomerular Filtration Rate 50 ML/MIN Lipase 115 U/L 108 U/L Total Bilirubin 0.5 MG/DL Direct Bilirubin 0.1 MG/DL Indirect Bilirubin 0.4 MG/DL Aspartate Amino Transf (AST/SGOT) 26 U/L Alanine Aminotransferase (ALT/SGPT) 27 U/L Alkaline Phosphatase 73 U/L Total Protein 7.0 GM/DL Albumin 3.6 GM/DL [facility] Medical Decision Making Medical Screen Exam Complete: Yes Emergency Medical Condition: Yes Medical Record Reviewed: Yes Differential Diagnosis Constipation, Gastritis, Acute Cholecystitis, Biliary Colic, Pancreatitis, REYNOSO , Hepatitis, Bowel Obstruction, Cystitis, Mesenteric Ischemia, AAA, Appendicitis , Renal Stone/Hydronephrosis, GERD, perforated viscous Narrative Course Patient was reassessed at 8:30 PM and found to be crying and rubbing her abdomen complaining of severe pain. She's had [address] scans all of which have been normal and all of which were obtained in the last 2 months. Unfortunately in the setting of patient's attestation and clinical picture there is no choice but to repeat another CT scan even though the pretest probability is considered low. Additional morphine will be provided as well as she has had no relief from alternative intervention. There is concern for opioid dependence and drug-seeking conduct. Haldol 2mg IM given. CBC & BMP Diagram 09/21/17 18:50 Calcium Level 9.5 Last Impressions Abdomen/Pelvis CT 09/21/[id number] Signed Impressions: Service Date/Time: September 21:16 - CONCLUSION: No acute CT findings in the abdomen or pelvis. Brian Zamorano MD Pt reports follow up with GI is scheduled September 26. 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
[2017-09-21] MEDS ORDERED: DICYCLOMINE HCL 20 MG/2 ML VIAL IM ONE (20:15)
[2017-09-21 20:18] LABS: TOTAL BILIRUBIN ADULT 0.5 MG/DL (0.2-1.0)
[2017-09-21 20:41] LABS: ALBUMIN 3.6 GM/DL (3.4-5.0); DIRECT BILIRUBIN ADULT 0.1 MG/DL (0.0-0.2); INDIRECT BILIRUBIN 0.4 MG/DL (0.0-0.8)
[2017-09-21 20:43] VITALS: BP 173/79; PULSE 69; RESP 24; O2SAT 99
[2017-09-21] MEDS ORDERED: DIATRIZOATE MEGLUM/DIATRIZOATE SOD 9 ML CUP ONE (20:49)
[2017-09-21] MEDS ORDERED: HALOPERIDOL LACTATE 5 MG/ML AMP IM ONE (21:00)
[2017-09-21] MEDS ORDERED: IOHEXOL 350 MG/ML 10 ML VIAL (for RAD DIAG) IVCONTRAST ONE (21:23)
--- NOTE | 2017-09-21 21:53 | RADRPT ---
EXAM DATE/TIME: 09/21/2017 21:16 [facility] COMPARISON: CT ABDOMEN & PELVIS W/O CONTRAST, September 04, 2017, 17:37. INDICATIONS : Patient complains of abdominal pain. IV CONTRAST: 100 cc Omnipaque 350 (iohexol) IV ORAL CONTRAST: No oral contrast ingested. RADIATION DOSE: 16.01 CTDIvol (mGy) MEDICAL HISTORY : Cerebrovascular disease. Congestive heart failure. Hypertension.Colitis. Renal calculi. [place]. SURGICAL HISTORY : Cholecystectomy. Hysterectomy.Bladder lift. ENCOUNTER: Initial ACUITY: 2 months PAIN SCALE: 10/10 LOCATION: Abdomen. TECHNIQUE: Volumetric scanning of the abdomen and pelvis was performed. Using automated exposure control and ad justment of the mA and/or kV according to patient size, radiation dose was kept as low as reasonably achievable to obtain optimal diagnostic quality images. DICOM format image data is available electro nically for review and comparison. FINDINGS: LOWER LUNGS: The visualized lower lungs are clear. LIVER: Homogeneous density without lesion. There is no dilation of the biliary tree. No calcified gallston es. SPLEEN: Normal size without lesion. PANCREAS: Within normal limits. KIDNEYS: Tiny cyst in the upper pole medial cortex of the left kidney. No suspicious mass, stone or hydronephr osis. ADRENAL GLANDS: Within normal limits. VASCULAR: There is no aortic aneurysm. BOWEL/MESENTERY: The stomach, small bowel, and colon demonstrate no acute abnormality. There is no free intraperitone al air or fluid. ABDOMINAL WALL: Within normal limits. RETROPERITONEUM: There is no lymphadenopathy. BLADDER: No wall thickening or mass. REPRODUCTIVE: Uterus surgically absent. No evidence of pelvic mass or free fluid. INGUINAL: There is no lymphadenopathy or hernia. MUSCULOSKELETAL: Within normal limits for patient age. CONCLUSION: No acute CT findings in the abdomen or pelvis. Brian Zamorano MD on September 21, 2017 at 21:49 Board Certified Radiologist. This report was verified electronically.
[2017-09-21 22:18] VITALS: BP 173/79
[2017-09-21] MEDS ORDERED: DICY10 PO (22:25)
[2017-09-21] MEDS ORDERED: TRAM50TA PO (22:25)
--- NOTE | 2017-09-23 09:13 | EKG ---
Date Performed: 09/21/2017 Time Performed: 18:46:17 PTAGE: 57 years EKG: Sinus rhythm NORMAL ECG PREVIOUS TRACING : 09/20/2017 07.03 DOCTOR: Nany Esparza Interpretating Date/Time 09/23/2017 09:09:48
== END 2017-09-21 23:36 | disposition home or self-care (01) ==
LOC: NEPD 16:46
DX: R10.9 Unspecified abdominal pain (principal); I50.9 Heart failure, unspecified; F12.90 Cannabis use, unspecified, uncomplicated; E11.8 Type 2 diabetes mellitus with unspecified complications; M79.7 Fibromyalgia; I10 Essential (primary) hypertension
CPT/HCPCS: 74177; 80048; 80076; 80307; 81001; 83690; 85025; 85610; 85730; 93005; 96372; 96374; 96375; 99285; J0500; J1885; J2270; J2405; Q9963; Q9967

== ENCOUNTER 2017-10-10 19:26 | Emergency (ER) | payer MEDICAID, OTHER ==
[2017-10-10] MEDS ORDERED: SODIUM CHLORIDE 0.9% FLUSH 10 ML FLUSH IV FLUSH (21:30)
[2017-10-10] MEDS: KETOROLAC TROMETHAMINE 30 MG/ML (IVP) VIAL IVP (21:43)
[2017-10-10] MEDS: SODIUM CHLOR 0.9% 1000 ML INJ 1,000 ML IV (21:43)
[2017-10-10] MEDS: ONDANSETRON HCL 4 MG/2 ML VIAL IVP (21:44)
[2017-10-10 21:53] LABS: AUTOMATED NEUTROPHIL # 4.5 TH/MM3 (1.8-7.7); BASOPHIL % 0.5 % (0.0-2.0); EOSINOPHIL # 0.1 TH/MM3 (0-0.4); EOSINOPHIL % 1.2 % (0.0-4.0); HEMATOCRIT 40.2 % (35.0-46.0); HEMO FLAGS DIFF FINAL; HEMOGLOBIN 13.7 GM/DL (11.6-15.3); LYMPH % 39.9 % (9.0-44.0); LYMPHOCYTE # 3.5 TH/MM3 (1.0-4.8); MEAN CELL VOLUME 88.2 FL (80.0-100.0); MEAN CORPUSCULAR HEMOGLOBIN 30.1 PG (27.0-34.0); MEAN CORPUSCULAR HGB CONC 34.1 % (32.0-36.0); MEAN PLATELET VOLUME 10.9 FL (7.0-11.0); MONO % 7.7 % (0.0-8.0); MONOCYTE # 0.7 TH/MM3 (0-0.9); NEUT % 50.7 % (16.0-70.0); PLATELET COUNT 174 TH/MM3 (150-450); RED BLOOD COUNT 4.56 MIL/MM3 (4.00-5.30); RED CELL DISTRIBUTION WIDTH 13.8 % (11.6-17.2); WHITE BLOOD COUNT 8.8 TH/MM3 (4.0-11.0)
[2017-10-10 22:10] LABS: ALT (GPT) 26 U/L (10-53)
[2017-10-10 22:12] LABS: ALBUMIN 3.5 GM/DL (3.4-5.0); ANION GAP 7 MEQ/L (5-15); AST (GOT) 16 U/L (15-37); BLOOD UREA NITROGEN 18 MG/DL (7-18); CHLORIDE 107 MEQ/L (98-107); CREATININE 1.17 MG/DL (0.50-1.00); GLOMERULAR FILTRATION RATE 48 ML/MIN (>89); GLUCOSE,RANDOM 110 MG/DL (74-106); POTASSIUM 3.6 MEQ/L (3.5-5.1); SODIUM (NA) 141 MEQ/L (136-145)
[2017-10-10 22:13] LABS: ALKALINE PHOSPHATASE 76 U/L (45-117); TOTAL BILIRUBIN ADULT 0.2 MG/DL (0.2-1.0); TOTAL PROTEIN 6.8 GM/DL (6.4-8.2)
[2017-10-10 22:14] LABS: APTT (PATIENT) 24.3 SEC (24.3-30.1)
[2017-10-10] MEDS: oxyCODONE/ACETAMINOPHEN 5 MG/325 MG TAB PO (22:38)
[2017-10-10 23:44] LABS: BACTERIA, URINE RARE /hpf; BILIRUBIN, URINE NEG (NEG); BLOOD, URINE NEG (NEG); COMMENT (UR) CULT NOT INDICATED; CULTURE IF INDICATED CULT NOT INDICATED; GLUCOSE,URINE NEG (NEG); KETONE, URINE TRACE mg/dL (NEG); MUCUS URINE MOD /lpf (OCC); NITRITE,URINE NEG (NEG); PH, URINE 5.5 (5.0-8.5); SQUAMOUS EPITHELIAL CELL URINE 2 /hpf (0-5); URINE COLOR YELLOW (YELLW/STRAW); URINE LEUKOCYTE ESTERASE SMALL (NEG)
== END 2017-10-11 00:28 | disposition home or self-care (01) ==
LOC: NEPC 10-11 00:28
DX: R10.9 Unspecified abdominal pain (principal); E11.9 Type 2 diabetes mellitus without complications; I11.0 Hypertensive heart disease with heart failure; I50.9 Heart failure, unspecified; M79.7 Fibromyalgia; F12.90 Cannabis use, unspecified, uncomplicated; Z72.0 Tobacco use; Z79.84 Long term (current) use of oral hypoglycemic drugs
CPT/HCPCS: 80053; 81001; 83605; 85025; 85610; 85730; 96361; 96374; 96375; 99284-25

== ENCOUNTER 2017-11-15 16:56 | Emergency (ER) | payer MEDICAID ==
[~2017-11-15] VITALS: Ht 170.2 cm; Wt 120.0 kg
[~2017-11-15 16:56] MED LIST changes: -CYCL10TA PO; -DICY10 PO; +GABA800T PO; -MACR100C2 PO; +METF500T PO; +METO50TA PO; -OMEP40CA2 PO; -TRAM50TA PO
[2017-11-15 17:01] VITALS: BP 129/83; PULSE 79; RESP 20; TEMP 98.8; O2SAT 98
[2017-11-15] MEDS ORDERED: SERT-129 PO (17:11)
[2017-11-15] MEDS ORDERED: QUET1TAB9 PO (17:11)
--- NOTE | 2017-11-15 17:12 | PD ---
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 Patient appear to be in extreme agony when she came to the emergency room. Her mother is here with her who is supplementing more history. As per the mother patient started getting pain since last night but this morning the pain got more severe to the point where she was unable to carry a grocery bag. Patient is pointing the pain to her vaginal area. Denies of any bleeding. Once again given her distress it is very hard to ask specific questions and get answers. She tells that the pain radiates all the way down to her legs and the upper body. Vital signs were stable. Patient says she is sexually active. PFSH Past Medical History Narrative Medical List of her past medical, surgical, social and family history is reviewed from the nursing note Arthritis: Yes (RA) Anxiety: Yes Depression: Yes Cardiovascular Problems: Yes Chest Pain: Yes Congestive Heart Failure: Yes Cerebrovascular Accident: Yes Diabetes: Yes Patient Takes Glucophage: No Diminished Hearing: No Fibromyalgia: Yes Gastrointestinal Disorders: Yes (COLITIS) Headaches: Yes Hypertension: Yes Kidney Stones: Yes Respiratory: Yes Immunizations Current: Yes Myocardial Infarction: Yes Pneumonia: Yes Seizures: Yes Thyroid Disease: Yes (goiter) Tetanus Vaccination: < 5 Years ?: Not Menopausal: Yes : 2 Para: 2 Past Surgical History Section: Yes (X 1) Cholecystectomy: Yes Genitourinary Surgery: Yes (BLADDER LIFTED X 2) Hysterectomy: Yes Neurologic Surgery: Yes (MULTIPLE TUMORS IN FRONT LOBE REMOVED- 5 YEARS AGO) Other Surgery: Yes (TARSAL TUNNEL SYNDROME) Social History Alcohol Use: No Tobacco Use: Yes Substance Use: Yes (MARIJUANA) Allergies-Medications (Allergen,Severity, Reaction): Coded Allergies: penicillin G (Unverified Allergy, Intermediate, Rash, 11/15/17) Comments List of her allergies reviewed from the nursing note. Reported Meds & Prescriptions Reported Meds & Active Scripts Active Pyridium (Phenazopyridine HCl) 100 Mg Tab 100 Mg PO Q8H PRN Macrobid (Nitrofurantoin Monoh/Nitrofur Macro) 100 Mg Cap 100 Mg PO BID 10 Days Reported Flexeril (Cyclobenzaprine HCl) 10 Mg Tab 10 Mg PO TID Atorvastatin (Atorvastatin Calcium) 40 Mg Tab 40 Mg PO HS Aspirin Children's (Aspirin) 81 Mg Chew 81 Mg CHEW DAILY Metoprolol Tartrate 50 Mg Tab 50 Mg PO BID Narrative Medication List of her home medications reviewed from the nursing note Review of Systems Except as stated in HPI: all other systems reviewed are Neg Genitourinary: Positive: Pelvic Pain Physical Exam Narrative GENERAL: Awake, alert, anxious, significant distress SKIN: Focused skin assessment warm/dry. HEAD: Atraumatic. Normocephalic. EYES: Pupils equal and round. No scleral icterus. No injection or drainage. ENT: No nasal bleeding or discharge. Mucous membranes pink and moist. NECK: Trachea midline. No JVD. CARDIOVASCULAR: Regular rate and rhythm. No murmur appreciated. RESPIRATORY: No accessory muscle use. Clear to auscultation. Breath sounds equal bilaterally. GASTROINTESTINAL: Abdomen soft, non-tender, nondistended. Hepatic and splenic margins not palpable. : External inspection is within normal limit. Speculum exam reveals scant whitish discharge that is foul-smelling. Swabs were collected. MUSCULOSKELETAL: No obvious deformities. No clubbing. No cyanosis. No edema. NEUROLOGICAL: Awake and alert. No obvious cranial nerve deficits. Motor grossly within normal limits. Normal speech. PSYCHIATRIC: Appropriate mood and affect; insight and judgment normal. Data Data Last Documented VS Vital Signs Date Time Temp Pulse Resp B/P (MAP) Pulse Ox O2 Delivery O2 Flow Rate FiO2 11/15/17 21:13 11/15/17 19:24 95 18 98 Room Air 11/15/17 17:01 98.8 Orders Orders Gc And Chlamydia Pcr (11/15/17 17:23) Wet Prep Profile (11/15/17 17:23) Urinalysis - C+S If Indicated (11/15/17 17:23) Complete Blood Count With Diff (11/15/17 17:39) Comprehensive Metabolic Panel (11/15/17 17:39) Ct Abd/Pel W/O Iv Contrast (11/15/17 17:39) Iv Access Insert/Monitor (11/15/17 17:39) Ecg Monitoring (11/15/17 17:39) Oximetry (11/15/17 17:39) Sodium Chlor 0.9% 1000 Ml Inj (Ns 1000 M (11/15/17 17:39) Sodium Chloride 0.9% Flush (Ns Flush) (11/15/17 17:45) Ketorolac Inj (Toradol Inj) (11/15/17 17:45) Acetamin-Hydrocod 325-5 Mg ([place] 5-325 (11/15/17 19:30) Urine Culture (11/15/17 19:30) Nitrofurantoin Monohyd Macrocr (Macrobid (11/15/17 20:45) Phenazopyridine (Pyridium) (11/15/17 20:45) Ed Discharge Order (11/15/17 20:51) Labs Laboratory Tests Test 11/15/17 17:40 11/15/17 17:55 11/15/17 19:30 White Blood Count 11.2 TH/MM3 Red Blood Count 4.64 MIL/MM3 Hemoglobin 13.7 GM/DL Hematocrit 40.8 % Mean Corpuscular Volume 87.9 FL Mean Corpuscular Hemoglobin 29.6 PG Mean Corpuscular Hemoglobin Concent 33.6 % Red Cell Distribution Width 14.1 % Platelet Count 198 TH/MM3 Mean Platelet Volume 11.4 FL Neutrophils (%) (Auto) 61.5 % Lymphocytes (%) (Auto) 29.9 % Monocytes (%) (Auto) 7.0 % Eosinophils (%) (Auto) 0.9 % Basophils (%) (Auto) 0.7 % Neutrophils # (Auto) 6.9 TH/MM3 Lymphocytes # (Auto) 3.4 TH/MM3 Monocytes # (Auto) 0.8 TH/MM3 Eosinophils # (Auto) 0.1 TH/MM3 Basophils # (Auto) 0.1 TH/MM3 CBC Comment DIFF FINAL Differential Comment Blood Urea Nitrogen 20 MG/DL Creatinine 1.35 MG/DL Random Glucose 95 MG/DL Total Protein 7.1 GM/DL Albumin 3.5 GM/DL Calcium Level 8.8 MG/DL Alkaline Phosphatase 83 U/L Aspartate Amino Transf (AST/SGOT) 31 U/L Alanine Aminotransferase (ALT/SGPT) 26 U/L Total Bilirubin 0.5 MG/DL Sodium Level 139 MEQ/L Potassium Level 4.2 MEQ/L Chloride Level 108 MEQ/L Carbon Dioxide Level 22.0 MEQ/L Anion Gap 9 MEQ/L Estimat Glomerular Filtration Rate 40 ML/MIN Clue Cells (Wet Prep) NONE SEEN Vaginal Trichomonas (Wet Prep) NONE SEEN Vaginal Yeast (Wet Prep) NONE SEEN Chlamydia trachomatis DNA (PCR) NOT DETECTED Neisseria gonorrhoeae DNA (PCR) NOT DETECTED Urine Color YELLOW Urine Turbidity CLEAR Urine pH 5.5 Urine Specific [place] 1.036 Urine Protein TRACE mg/dL Urine Glucose (UA) NEG mg/dL Urine Ketones NEG mg/dL Urine Occult Blood NEG Urine Nitrite POS Urine Bilirubin NEG Urine Urobilinogen 2.0 MG/DL Urine Leukocyte Esterase NEG Urine RBC LESS THAN 1 /hpf Urine WBC 1 /hpf Urine Squamous Epithelial Cells <1 /hpf Urine Bacteria MANY /hpf Urine Mucus FEW /lpf Microscopic Urinalysis Comment CULTURE INDICATED MDM Medical Decision Making Medical Screen Exam Complete: Yes Emergency Medical Condition: Yes Medical Record Reviewed: Yes Differential Diagnosis PID, UTI, ureteral colic Narrative Course 8:30 PM blood test results are back and within normal limit. CT scan without contrast of abdomen and pelvis was negative as per the radiologist. UA is positive. I have given her dose of Macrobid and Pyridium. Upon arrival patient was treated for pain twice. I went back in the room and discussed with the patient regarding the test results. She will be discharged home on prescriptions. Procedures EKG Prior to Arrival: No Diagnosis Primary Impression: Pelvic pain Additional Impression: UTI (urinary tract infection) Qualified Codes: N39.0 - Urinary tract infection, site not specified Referrals: Primary Care Physician 3 days Additional Instructions: Take the medication as per the prescription direction. Return to the ER if condition worsens any other new concerns. You can take Advil/Motrin/ibuprofen/ Tylenol which are available [id number] in addition for pain relief as well. Drink lots of fluid. Cranberry juice would be helpful too. Med/Other Pt SpecificInfo: Prescription(s) given Scripts Phenazopyridine (Pyridium) 100 Mg Tab 100 MG PO Q8H Y for DYSURIA, #6 TAB 0 Refills Prov: Sherri Turcios MD 11/15/17 Nitrofurantoin Monohydrate Macrocrystals (Macrobid) 100 Mg Cap 100 MG PO BID for Infection for 10 Days, #20 CAP 0 Refills Prov: Sherri Turcios MD 11/15/17 Disposition: 01 DISCHARGE HOME Condition: Stable Sherri Turcios MD Nov 15, 2017 17:12
[2017-11-15] MEDS ORDERED: ASPI81CH7 CHEW (17:17)
[2017-11-15] MEDS ORDERED: ATOR40TA16 PO (17:17)
[2017-11-15] MEDS ORDERED: CYCL10TA PO (17:17)
[2017-11-15] MEDS ORDERED: SODIUM CHLOR 0.9% 1000 ML INJ 1,000 ML IV SCH (17:39)
[2017-11-15] MEDS ORDERED: SODIUM CHLORIDE 0.9% FLUSH 10 ML FLUSH IV FLUSH PRN (17:45)
[2017-11-15] MEDS ORDERED: KETOROLAC TROMETHAMINE 30 MG/ML (IVP) VIAL IVP ONE (17:45)
[2017-11-15 18:02] VITALS: O2SAT 99
[2017-11-15 18:37] LABS: AUTOMATED NEUTROPHIL # 6.9 TH/MM3 (1.8-7.7); BASOPHIL # 0.1 TH/MM3 (0-0.2); BASOPHIL % 0.7 % (0.0-2.0); EOSINOPHIL # 0.1 TH/MM3 (0-0.4); EOSINOPHIL % 0.9 % (0.0-4.0); HEMATOCRIT 40.8 % (35.0-46.0); HEMOGLOBIN 13.7 GM/DL (11.6-15.3); LYMPH % 29.9 % (9.0-44.0); LYMPHOCYTE # 3.4 TH/MM3 (1.0-4.8); MEAN CELL VOLUME 87.9 FL (80.0-100.0); MEAN CORPUSCULAR HEMOGLOBIN 29.6 PG (27.0-34.0); MEAN CORPUSCULAR HGB CONC 33.6 % (32.0-36.0); MEAN PLATELET VOLUME 11.4 FL (7.0-11.0); MONOCYTE # 0.8 TH/MM3 (0-0.9); NEUT % 61.5 % (16.0-70.0); PLATELET COUNT 198 TH/MM3 (150-450); RED BLOOD COUNT 4.64 MIL/MM3 (4.00-5.30); RED CELL DISTRIBUTION WIDTH 14.1 % (11.6-17.2); WHITE BLOOD COUNT 11.2 TH/MM3 (4.0-11.0)
[2017-11-15 18:54] LABS: ALKALINE PHOSPHATASE 83 U/L (45-117); TOTAL BILIRUBIN ADULT 0.5 MG/DL (0.2-1.0); TOTAL PROTEIN 7.1 GM/DL (6.4-8.2)
[2017-11-15 19:02] LABS: ALBUMIN 3.5 GM/DL (3.4-5.0); ALT (GPT) 26 U/L (10-53); AST (GOT) 31 U/L (15-37); BLOOD UREA NITROGEN 20 MG/DL (7-18); CALCIUM 8.8 MG/DL (8.5-10.1); CHLORIDE 108 MEQ/L (98-107); CREATININE 1.35 MG/DL (0.50-1.00); GLOMERULAR FILTRATION RATE 40 ML/MIN (>89); GLUCOSE,RANDOM 95 MG/DL (74-106); SODIUM (NA) 139 MEQ/L (136-145)
--- NOTE | 2017-11-15 19:20 | RADRPT ---
EXAM DATE: 11/15/2017 6:54 PM EDT AGE/SEX: 57 years / Female INDICATIONS: Pelvic pain. CLINICAL DATA: This is the patient's initial encounter. Patient reports that signs and symptoms have been present for 1 day and indicates a pain score of 7/10. MEDICAL/SURGICAL HISTORY: Stroke. Cardiovascular disease. Hypertension. Brain tumor Cholecy stectomy. Hysterectomy. RADIATION DOSE: 11.29 CTDI (mGy) [place] [facility] [place]/2017. . TECHNIQUE: Multiple contiguous axial images were obtained through the abdomen. Images were obtained using multiple row detector helical technique. Using dose reduction techniques, radiation dose was ke pt as low as reasonably achievable to obtain optimal diagnostic quality images. FINDINGS: Lower Lungs: The visualized lower lungs are clear. Liver: The liver has a homogeneous density without space-occupying lesion. There is no dilation of th e biliary tree. Spleen: Homogeneous density without enlargement. Pancreas: Unremarkable without mass or calcification. Kidneys: Normal in size and shape. No evidence of mass or hydronephrosis. Adrenal Glands: Unremarkable. Aorta: The aorta and proximal iliac vessels are grossly unremarkable without aneurysmal dilation. Bowel/Mesentery: The bowel loops are grossly unremarkable. The cecum and sigmoid colon have a normal configuration. Abdominal Wall: Intact. Retroperitoneum: No evidence of adenopathy in the retrocrural, para-aortic, or deep pelvic regions. Bladder: Contours are smooth. Reproductive Organs: Uterus surgically absent. No evidence of pelvic mass or free fluid. Inguinal: The inguinal region is unremarkable without evidence of adenopathy. Bony Structures: Unremarkable. CONCLUSION: 1. No acute CT findings in the abdomen or pelvis. Electronically signed by: Brian Zamorano MD 11/15/2017 7:19 PM EDT
[2017-11-15 19:24] VITALS: BP 142/89; PULSE 95; RESP 18; O2SAT 98
[2017-11-15] MEDS ORDERED: ACETAMINOPHEN/HYDROcodone 325 MG/5 MG TAB PO ONE (19:30)
[2017-11-15 20:16] LABS: BACTERIA, URINE MANY /hpf; BILIRUBIN, URINE NEG (NEG); BLOOD, URINE NEG (NEG); GLUCOSE,URINE NEG (NEG); KETONE, URINE NEG (NEG); MUCUS URINE FEW /lpf (OCC); NITRITE,URINE POS (NEG); PH, URINE 5.5 (5.0-8.5); SQUAMOUS EPITHELIAL CELL URINE <1 /hpf (0-5); URINE COLOR YELLOW (YELLW/STRAW); URINE LEUKOCYTE ESTERASE NEG (NEG)
[2017-11-15] MEDS ORDERED: NITROFURANTOIN MONOHYD MACROCR 100 MG CAP PO ONE (20:45)
[2017-11-15] MEDS ORDERED: PHENAZOPYRIDINE HCL 200 MG TAB PO ONE (20:45)
[2017-11-15] MEDS ORDERED: MACR100C2 PO (20:53)
[2017-11-15] MEDS ORDERED: PHEN0.4T PO (20:53)
== END 2017-11-15 21:14 | disposition home or self-care (01) ==
LOC: NEPD 16:56
DX: N39.0 Urinary tract infection, site not specified (principal); B96.1 Klebsiella pneumoniae [K. pneumoniae] as the cause of diseases classified elsewhere; E11.9 Type 2 diabetes mellitus without complications; I10 Essential (primary) hypertension; M06.9 Rheumatoid arthritis, unspecified; E07.9 Disorder of thyroid, unspecified; I25.2 Old myocardial infarction; Z72.0 Tobacco use; Z86.79 Personal history of other diseases of the circulatory system; Z86.59 Personal history of other mental and behavioral disorders; Z87.39 Personal history of other diseases of the musculoskeletal system and connective tissue; Z87.19 Personal history of other diseases of the digestive system; Z87.442 Personal history of urinary calculi
CPT/HCPCS: 74176; 80053; 81001; 85025; 87077; 87086; 87186; 87210; 87491; 87591; 96361; 96374; 99284; J1885; J7030

== ENCOUNTER 2017-11-20 08:41 | Emergency (ER) | payer MEDICAID ==
[~2017-11-20] VITALS: Ht 170.2 cm; Wt 85.0 kg
[~2017-11-20 08:41] MED LIST changes: +ASPI81CH7 CHEW; +ATOR40TA16 PO; +CYCL10TA PO; -GABA800T PO; +MACR100C2 PO; -MELO7.5T27 PO; -METF500T PO; +PHEN0.4T PO; -TYLE325T PO; -ZOFR4TAB PO
[2017-11-20 08:44] VITALS: BP 166/121; PULSE 102; RESP 32; TEMP 97.2; O2SAT 96
[2017-11-20 09:10] VITALS: BP 146/79; PULSE 96; RESP 20; O2SAT 98
[2017-11-20] MEDS ORDERED: CYMB30CA PO (09:20)
[2017-11-20] MEDS ORDERED: REME15TA PO (09:20)
[2017-11-20] MEDS ORDERED: SERO100T PO (09:20)
[2017-11-20] MEDS ORDERED: LYRI50CA PO (09:20)
[2017-11-20] MEDS ORDERED: AMIT50TA3 PO (09:20)
[2017-11-20] MEDS ORDERED: SODIUM CHLOR 0.9% 1000 ML INJ 1,000 ML IV ONE (09:27)
[2017-11-20] MEDS ORDERED: CIPROFLOXACIN 400 MG PREMIX 200 ML IV ONE (09:30)
--- NOTE | 2017-11-20 09:36 | PD ---
HPI Chief Complaint: GI Complaint Time Seen by Provider: 09:22 Travel History International Travel<30 days: No Contact w/Intl Traveler<30days: No Traveled to known affect area: No History of Present Illness HPI Patient presents to the emergency department complaining of 3 day history of sweating and abdominal pain. Was diagnosed with a UTI approximately 1 week ago and sent home on Pyridium and nitrofurantoin. She was called this morning until she did begin a different antibiotic. Had an intermittent fever 102-103, nausea, vomiting, shortness of breath with exertion, feeling weak/dizzy/ dehydrated, polyuria, bilateral blurry vision. She denies chills, chest pain, vaginal discharge, dysuria, headache, diarrhea. PFSH Past Medical History Arthritis: Yes (RA) Anxiety: Yes Depression: Yes Cardiovascular Problems: Yes Chest Pain: Yes Congestive Heart Failure: Yes Cerebrovascular Accident: Yes Diabetes: Yes Patient Takes Glucophage: No Diminished Hearing: No Fibromyalgia: Yes Gastrointestinal Disorders: Yes (COLITIS) Headaches: Yes Hypertension: Yes Kidney Stones: Yes Respiratory: Yes Immunizations Current: Yes Myocardial Infarction: Yes Pneumonia: Yes Seizures: Yes Thyroid Disease: Yes (goiter) ?: Not Menopausal: Yes : 2 Para: 2 Past Surgical History Section: Yes (X 1) Cholecystectomy: Yes Genitourinary Surgery: Yes (BLADDER LIFTED X 2) Hysterectomy: Yes Neurologic Surgery: Yes (MULTIPLE TUMORS IN FRONT LOBE REMOVED- 5 YEARS AGO) Other Surgery: Yes (TARSAL TUNNEL SYNDROME) Social History Alcohol Use: No Tobacco Use: Yes Substance Use: Yes (MARIJUANA) Allergies-Medications (Allergen,Severity, Reaction): Coded Allergies: penicillin G (Unverified Allergy, Intermediate, Rash, 11/20/17) Reported Meds & Prescriptions Reported Meds & Active Scripts Active Cipro (Ciprofloxacin HCl) 500 Mg Tab 500 Mg PO BID 7 Days Pyridium (Phenazopyridine HCl) 100 Mg Tab 100 Mg PO Q8H PRN Macrobid (Nitrofurantoin Monoh/Nitrofur Macro) 100 Mg Cap 100 Mg PO BID 10 Days Reported Seroquel (Quetiapine Fumarate) 100 Mg Tab 100 Mg PO HS Remeron (Mirtazapine) 15 Mg Tab 7.5 Mg PO HS Cymbalta DR (Duloxetine HCl) 30 Mg Capdr 30 Mg PO DAILY Lyrica (Pregabalin) 50 Mg Cap 50 Mg PO TID Amitriptyline (Amitriptyline HCl) 50 Mg Tab 50 Mg PO HS Flexeril (Cyclobenzaprine HCl) 10 Mg Tab 10 Mg PO TID Atorvastatin (Atorvastatin Calcium) 40 Mg Tab 40 Mg PO HS Aspirin Children's (Aspirin) 81 Mg Chew 81 Mg CHEW DAILY Review of Systems Except as stated in HPI: all other systems reviewed are Neg Physical Exam Narrative GENERAL: No acute distress. SKIN: Focused skin assessment warm/dry. HEAD: Atraumatic. Normocephalic. EYES: Pupils equal and round. No scleral icterus. No injection or drainage. ENT: No nasal bleeding or discharge. Mucous membranes pink and moist. NECK: Trachea midline. No JVD. CARDIOVASCULAR: Regular rate and rhythm. No murmur appreciated. RESPIRATORY: No accessory muscle use. Clear to auscultation. Breath sounds equal bilaterally. GASTROINTESTINAL: Abdomen soft, suprapubic and left upper quadrant tender, nondistended. Bilateral CVA tenderness. MUSCULOSKELETAL: No obvious deformities. No clubbing. No cyanosis. No edema. NEUROLOGICAL: Awake and alert. No obvious cranial nerve deficits. Motor grossly within normal limits. Normal speech. PSYCHIATRIC: Appropriate mood and affect; insight and judgment normal. Data Data Last Documented VS Vital Signs Date Time Temp Pulse Resp B/P (MAP) Pulse Ox O2 Delivery O2 Flow Rate FiO2 11/20/17 12:52 18 11/20/17 12:21 82 119/79 (92) 98 Room Air 11/20/17 08:44 97.2 Orders Orders Complete Blood Count With Diff (11/20/17 09:27) Comprehensive Metabolic Panel (11/20/17 09:27) Urinalysis - C+S If Indicated (11/20/17 09:27) Sodium Chlor 0.9% 1000 Ml Inj (Ns 1000 M (11/20/17 09:27) Ciprofloxacin 400 Mg Premix (Cipro 400 M (11/20/17 09:30) Lactic Acid (11/20/17 09:31) Morphine Inj (Morphine Inj) (11/20/17 09:45) Morphine Inj (Morphine Inj) (11/20/17 10:01) Urine Culture (11/20/17 09:55) Morphine Inj (Morphine Inj) (11/20/17 12:30) Ct Abd/Pel W/O Iv Contrast (11/20/17 12:26) Morphine Inj (Morphine Inj) (11/20/17 12:27) Ed Discharge Order (11/20/17 13:59) Labs Laboratory Tests Test 11/20/17 09:25 11/20/17 09:55 White Blood Count 7.0 TH/MM3 Red Blood Count 5.44 MIL/MM3 Hemoglobin 16.3 GM/DL Hematocrit 47.5 % Mean Corpuscular Volume 87.3 FL Mean Corpuscular Hemoglobin 29.9 PG Mean Corpuscular Hemoglobin Concent 34.3 % Red Cell Distribution Width 13.9 % Platelet Count 203 TH/MM3 Mean Platelet Volume 11.4 FL Neutrophils (%) (Auto) 75.0 % Lymphocytes (%) (Auto) 14.2 % Monocytes (%) (Auto) 6.2 % Eosinophils (%) (Auto) 4.0 % Basophils (%) (Auto) 0.6 % Neutrophils # (Auto) 5.2 TH/MM3 Lymphocytes # (Auto) 1.0 TH/MM3 Monocytes # (Auto) 0.4 TH/MM3 Eosinophils # (Auto) 0.3 TH/MM3 Basophils # (Auto) 0.0 TH/MM3 CBC Comment DIFF FINAL Differential Comment Blood Urea Nitrogen 19 MG/DL Creatinine 1.25 MG/DL Random Glucose 133 MG/DL Total Protein 7.1 GM/DL Albumin 3.6 GM/DL Calcium Level 9.4 MG/DL Alkaline Phosphatase 81 U/L Aspartate Amino Transf (AST/SGOT) 18 U/L Alanine Aminotransferase (ALT/SGPT) 25 U/L Total Bilirubin 0.5 MG/DL Sodium Level 137 MEQ/L Potassium Level 3.7 MEQ/L Chloride Level 103 MEQ/L Carbon Dioxide Level 22.6 MEQ/L Anion Gap 11 MEQ/L Estimat Glomerular Filtration Rate 44 ML/MIN Lactic Acid Level 1.2 mmol/L Urine Color [place] Urine Turbidity CLOUDY Urine pH 5.0 Urine Specific [place] 1.029 Urine Protein 30 mg/dL Urine Glucose (UA) NEG mg/dL Urine Ketones TRACE mg/dL Urine Occult Blood NEG Urine Nitrite POS Urine Bilirubin NEG Urine Urobilinogen 4.0 OR GREATER mg/dL Urine Leukocyte Esterase NEG Urine RBC 8 /hpf Urine WBC 9 /hpf Urine Squamous Epithelial Cells 41 /hpf Urine Calcium Oxalate Crystals OCC /hpf Urine Amorphous Sediment RARE Urine Bacteria RARE /hpf Urine Hyaline Casts 17 /lpf Urine Mucus MANY /lpf Microscopic Urinalysis Comment CULTURE INDICATED [facility] Medical Decision Making Medical Screen Exam Complete: Yes Emergency Medical Condition: Yes Interpretation(s) Labs: Elevated BUN and creatinine and glucose; elevated hemoglobin and hematocrit; UA-trace ketones, positive nitrites, positive blood, calcium oxalate crystals, culture indicated Last Impressions Abdomen/Pelvis CT 11/20/17 1226 Signed Impressions: CONCLUSION: 1. No acute CT findings in the abdomen or pelvis. 2. Normal appendix. 3. Mild colonic diverticulosis without evidence for diverticulitis. 4. Mild left base atelectasis. 5. Diffusely decreased hepatic attenuation with hepatomegaly consistent with h epatic steatosis. Differential Diagnosis Kidney stones, UTI, pyelonephritis, Narrative Course Patient presents to the emergency department complaining of abdominal pain and fever. Patient placed on air sampling and monitoring, IV access obtained, labs sent. She given 1 L IV normal saline and 2 mg IV morphine. As her UTI was not sensitive to nitrofurantoin which she was discharged with, she was given 400 mg IV Cipro. 1226: Patient given another 2 mg IV morphine. 1400: Patient reports feeling better. Based on latest urine culture sensitivity results will DC with Cipro 500 twice daily 7 days Diagnosis Primary Impression: Pyelonephritis Patient Instructions: General Instructions, Kidney Infection (ED) Additional Instructions: 1. Meds as directed. 2. Follow-up with primary care doctor in 24-48 hours. 3. Return to ER immediately for fever, vomiting, worsening abdominal pain, inability to urinate, or any new/worrisome/worsening symptoms. Med/Other Pt SpecificInfo: Prescription(s) given Scripts Ciprofloxacin (Cipro) 500 Mg Tab 500 MG PO BID for Infection for 7 Days, #14 TAB 0 Refills Prov: Brenda Huizar MD 11/20/17 Disposition: 01 DISCHARGE HOME Condition: Stable Brenda Huizar MD Nov 20, 2017 09:36
[2017-11-20] MEDS ORDERED: MORPHINE SULFATE 2 MG/ML SYRINGE IV PUSH ONE ×2 (09:45→12:30)
[2017-11-20] MEDS ORDERED: MORPHINE SULFATE 4 MG/ML INJ ONE ×2 (10:01→12:27)
[2017-11-20 10:12] VITALS: BP 130/69; PULSE 88; RESP 20; O2SAT 98
[2017-11-20 10:15] LABS: AUTOMATED NEUTROPHIL # 5.2 TH/MM3 (1.8-7.7); BASOPHIL % 0.6 % (0.0-2.0); EOSINOPHIL # 0.3 TH/MM3 (0-0.4); HEMATOCRIT 47.5 % (35.0-46.0); HEMOGLOBIN 16.3 GM/DL (11.6-15.3); LYMPH % 14.2 % (9.0-44.0); MEAN CELL VOLUME 87.3 FL (80.0-100.0); MEAN CORPUSCULAR HEMOGLOBIN 29.9 PG (27.0-34.0); MEAN CORPUSCULAR HGB CONC 34.3 % (32.0-36.0); MEAN PLATELET VOLUME 11.4 FL (7.0-11.0); MONO % 6.2 % (0.0-8.0); MONOCYTE # 0.4 TH/MM3 (0-0.9); PLATELET COUNT 203 TH/MM3 (150-450); RED BLOOD COUNT 5.44 MIL/MM3 (4.00-5.30); RED CELL DISTRIBUTION WIDTH 13.9 % (11.6-17.2)
[2017-11-20 10:25] LABS: ALT (GPT) 25 U/L (10-53)
[2017-11-20 10:26] LABS: ALKALINE PHOSPHATASE 81 U/L (45-117); TOTAL BILIRUBIN ADULT 0.5 MG/DL (0.2-1.0); TOTAL PROTEIN 7.1 GM/DL (6.4-8.2)
[2017-11-20 10:47] LABS: ALBUMIN 3.6 GM/DL (3.4-5.0); AST (GOT) 18 U/L (15-37); BICARBONATE 22.6 MEQ/L (21.0-32.0); BLOOD UREA NITROGEN 19 MG/DL (7-18); CALCIUM 9.4 MG/DL (8.5-10.1); CHLORIDE 103 MEQ/L (98-107); CREATININE 1.25 MG/DL (0.50-1.00); GLOMERULAR FILTRATION RATE 44 ML/MIN (>89); GLUCOSE,RANDOM 133 MG/DL (74-106); SODIUM (NA) 137 MEQ/L (136-145)
[2017-11-20 10:48] LABS: AMORPHOUS SEDIMENT, URINE RARE; BACTERIA, URINE RARE /hpf; BILIRUBIN, URINE NEG (NEG); BLOOD, URINE NEG (NEG); CALCIUM OXALATE CRYSTALS,URINE OCC /hpf; GLUCOSE,URINE NEG (NEG); HYALINE CAST, URINE 17 /lpf (RARE); KETONE, URINE TRACE mg/dL (NEG); MUCUS URINE MANY /lpf (OCC); NITRITE,URINE POS (NEG); SQUAMOUS EPITHELIAL CELL URINE 41 /hpf (0-5); URINE COLOR Amber (YELLW/STRAW); URINE LEUKOCYTE ESTERASE NEG (NEG)
[2017-11-20 12:21] VITALS: BP 119/79; PULSE 82; RESP 18; O2SAT 98
[2017-11-20 12:52] VITALS: RESP 18
--- NOTE | 2017-11-20 13:46 | RADRPT ---
EXAM DATE: 11/20/2017 1:37 PM EDT AGE/SEX: 57 years / Female INDICATIONS: Left sided abdomen pain today. CLINICAL DATA: This is the patient's initial encounter. Patient reports that signs and symptoms have been present for 1 day and indicates a pain score of 7/10. MEDICAL/SURGICAL HISTORY: Diabetes. Renal calculi. Cardiovascular disease. Hysterectomy. Cho lecystectomy. section. bladder lift, frontal lobe tumor removal RADIATION DOSE: 11.16 CTDI (mGy) COMPARISON: [facility] – [place], [place] ABDOMEN & PELVIS W/O CONTRAST, 11/15/2017. . TECHNIQUE: Multiple contiguous axial images were obtained through the abdomen. Images were obtained using multiple row detector helical technique. Using automated exposure control and adjustment of the mA and/or kV according to patient size, radiation dose was kept as low as reasonably achievable to o btain optimal diagnostic quality images. DICOM format image data is available electronically for rev iew and comparison. FINDINGS: LOWER LUNGS: Groundglass opacities in the left lung base likely reflecting atelectasis. LIVER: Mild diffusely decreased hepatic attenuation with liver measuring up to 18 cm in length. No f ocal gross mass or intrahepatic ductal dilatation. SPLEEN: Homogeneous density without enlargement. PANCREAS: Unremarkable without mass or calcification. KIDNEYS: Kidneys are symmetrical in size without evidence for radiopaque renal calculi, or contour d eforming abnormality or hydronephrosis. Small calcification noted near the left renal hilum is unchan ged and likely vascular in etiology. ADRENAL GLANDS: Unremarkable. AORTA: Celia-aneurysmal. BOWEL/MESENTERY: Mild sigmoid diverticulosis and scattered colonic diverticula without inflammatory change to suggest diverticulitis. Appendix is visualized and normal in appearance. No dilated loops o f bowel. No free fluid or drainable fluid collection. ABDOMINAL WALL: Intact. RETROPERITONEUM: No evidence of adenopathy in the retrocrural, para-aortic, or deep pelvic regions. BLADDER: Contours are smooth. REPRODUCTIVE: Uterus is surgically absent. BONY STRUCTURES: Degenerative spondylosis of the lower lumbar spine. CONCLUSION: 1. No acute CT findings in the abdomen or pelvis. 2. Normal appendix. 3. Mild colonic diverticulosis without evidence for diverticulitis. 4. Mild left base atelectasis. 5. Diffusely decreased hepatic attenuation with hepatomegaly consistent with hepatic steatosis. Electronically signed by: Shaji Segura MD 11/20/2017 1:44 PM EDT
[2017-11-20] MEDS ORDERED: CIPR-9 PO (13:58)
[2017-11-20 14:40] VITALS: BP 114/69
== END 2017-11-20 14:42 | disposition home or self-care (01) ==
LOC: NEPE 08:41
DX: N12 Tubulo-interstitial nephritis, not specified as acute or chronic (principal); R10.9 Unspecified abdominal pain; R11.2 Nausea with vomiting, unspecified; R42 Dizziness and giddiness; R06.02 Shortness of breath; R50.9 Fever, unspecified; R35.8 Other polyuria; H53.8 Other visual disturbances; R82.99 Other abnormal findings in urine; K57.30 Diverticulosis of large intestine without perforation or abscess without bleeding; I11.0 Hypertensive heart disease with heart failure; I50.9 Heart failure, unspecified; I25.2 Old myocardial infarction; E11.9 Type 2 diabetes mellitus without complications; M79.7 Fibromyalgia; M06.9 Rheumatoid arthritis, unspecified; F32.9 Major depressive disorder, single episode, unspecified; F41.9 Anxiety disorder, unspecified; Z86.73 Personal history of transient ischemic attack (TIA), and cerebral infarction without residual deficits; Z72.0 Tobacco use; Z87.442 Personal history of urinary calculi; Z88.0 Allergy status to penicillin; Z79.899 Other long term (current) drug therapy
CPT/HCPCS: 74176; 80053; 81001; 83605; 85025; 87086; 96365; 96366; 96375; 96376; 99284; J0744; J2270; J7030